=== PATIENT | female | born 1955 | race Caucasian/White ===

== ENCOUNTER → 2017-08-30 15:43 | Outpatient (CLI) | payer OTHER, SELFPAY ==
[2017-08-30 16:36] LABS: Add Manual Diff / Slide Review NO; Basophils Percent Auto 0.4 % (0-2); Eosinophils Percent Auto 1.3 % (2-4); Hematocrit 45.5 % (36-46); Hemoglobin 15.4 g/dL (12.0-16.0); Lymphocytes Percent Auto 22.8 % (25-40); Mean Corpuscular HGB Conc 33.9 % (30-36); Mean Corpuscular Hemoglobin 32.2 PG (26-34); Mean Corpuscular Volume 94.8 fL (80-100); Monocytes Percent Auto 6.3 % (3-14); Neutrophils Absolute Auto 8200 /uL (3000-5900); Neutrophils Percent Auto 69.2 % (50-75); Platelet Count 254 X10^3/uL (150-400); Red Cell Distribution Width 13.4 % (11.6-14.8); White Blood Cell Count 11.9 X10^3/uL (4.5-11.0)
[2017-08-30 16:49] LABS: Carbon Dioxide 29 mmol/L (22-32); Chloride 99 mmol/L (98-107); HEMOLYSIS < 15 (0-50); Sodium 141 mmol/L (137-145)
== END ==
PROVIDERS: Family Provider Family Medicine; PCP Family Medicine; Visit Provider Orthopaedic Surgery
DX: M16.11 Unilateral primary osteoarthritis, right hip (principal); Z01.818 Encounter for other preprocedural examination; Z01.812 Encounter for preprocedural laboratory examination
CPT/HCPCS: 36415; 80051; 85025; 93005

== ENCOUNTER 2017-09-13 10:10 | Inpatient (IN) | payer OTHER, SELFPAY ==
[2017-09-06 12:48] VITALS: BMI 29.8
[2017-09-13] VITALS (12 sets, daily range): BP systolic 125–157; BP diastolic 63–83; PULSE 50–64; RESP 10–18; TEMP 35.5–36.9; O2SAT 95–100; BMI 29.8
--- NOTE | 2017-09-13 | DI.RAD.S_ITS ---
PROCEDURE: XR PELVIS 1-2V INDICATIONS: TOTAL LEFT HIP TECHNIQUE: 1 view of the lower pelvis acquired. COMPARISON: [facility], CR, XR PELVIS WITH LATERAL HIP LEFT, 08/30/2017, 11:49. FINDINGS: Bones: Patient is status post left hip arthroplasty, with hardware components in expected positions. The hip joint appears congruent. The visualized bony structures appear intact. Soft tissues: Overlying postoperative changes are noted. No suspicious soft tissue densities. IMPRESSION: Left hip arthroplasty with prosthesis in anatomic alignment. Dictated by: Addy Reynoso M.D. on 09/13/2017 at 14:33 Approved by: Addy Reynoso M.D. on 09/13/2017 at 14:33
[2017-09-13] MEDS: LACTATED RINGERS 1,000 ML 42 ML IV ×2 (10:51→12:20)
--- NOTE | 2017-09-13 11:05 | PM.PREOP ---
Pre-operative Note Interval Note Pre-op Check: History & Physical Reviewed by Physician and Changes
--- NOTE | 2017-09-13 11:56 | SUR.OPER ---
Lateral on padded OR bed. Gel axillary roll. Arms secured on padded armboard with pillow supporting top arm. Padded hip positioner braces x4 - anterior and posterior chest and pelvis. Additional gel pad used anterior pelvis. Gel pad under bottom leg from knee to foot and secured with tape over sheet.
[2017-09-13] MEDS: BUPIVACAINE LIPOSOME 266 MG/20 ML VIAL INJ (12:01)
[2017-09-13] MEDS: BUPIVACAINE 0.25% W/ EPI 50 ML VIAL 30 ML INJ (12:01)
[2017-09-13] MEDS: CEFAZOLIN 1 GM VIAL IV (12:02)
[2017-09-13] MEDS: TRANEXAMIC ACID 1,000 MG VIAL 1000 MG INJ (12:03)
--- NOTE | 2017-09-13 12:51 | PM.OP.1 ---
Operative Date/Time/Diagnoses - Date of procedure: 09/13/17 Time of procedure: 12:52 Pre-op diagnosis: Left hip degenerative joint disease Post-op diagnosis: same Procedure & Clinicians Procedure: Left total hip arthroplasty (CPT code 72355 with server service assistant) Same procedure as scheduled: Yes Indications: Patient is an 61-year-old female with severe left hip DJD. The patient has pain with activities and at rest, limited ambulation and activity tolerance, difficulties with ADLs, and failure of conservative treatment. We have discussed the nature of condition, treatment options, risks and benefits, and patient elects to proceed with total hip arthroplasty and gives informed consent. Surgeon: Basilio Mcdonald Special Agent Secret Service: Chel Duron Anesthesia Type: Spinal Operative Notes Closure Type: primary Specimen(s): none sent Implants & Drains: Acetabulum: Pablo [employer]hew R3 acetabular component size 54 mm Femoral component: Pablo [employer]hew Synergy stem size 12 with standard offset Femoral head: 36 mm + 0 Oxinium Estimated Blood Loss (mL): 100 Blood products transfused: none Procedure in detail: After satisfaction induction of anesthetic, and administration of IV antibiotics, the patient was positioned in the lateral decubitus position with all bony prominences well padded and pelvic position secured using a hip agricultural plow operator positioning device. Left hip and lower extremity prepped and draped in the usual sterile fashion, 1st dose of intravenous tranexamic acid was administered, then a longitudinal incision was created centered over the greater trochanter and carried sharply through the skin and subcutaneous tissues down to the fascia gi which was divided longitudinally and retracted with a Charnley retractor. External rotators visualize, cut, tagged, and retracted posteriorly, then the capsule was cut in a T-type fashion with the corners tagged and retracted. Hip was dislocated and femoral neck cut made according to preoperative templating. Acetabular retractors then placed, and the acetabular labrum and osteophytes were excised. The acetabulum was then sequentially reamed to 53 mm with an excellent circumferential ream and fit with the trial. The trial component was removed and a permanent size 54 mm Pablo [employer] Nephew R3 acetabular component was selected, positioned, and impacted with satisfactory position and fixation achieved. Permanent liner was then inserted with the elevated lip directed posteriorly. Soft tissue then removed off the lateral femoral neck in the lateral neck was entered using a box osteotome. T-handled reamers placed down the canal followed by sequential broaching to 12 with the final broach left in place for trial reduction which demonstrated excellent leg length, range of motion, and stability characteristics with a 36 mm +0 trial ball. The trial and broach were removed, and a permanent size 12 Pablo and Nephew Synergy stem was selected and inserted with excellent position and fixation achieved. Another trial reduction yielded the above characteristics so the trial ball was exchanged for a permanent 36 mm +0 Oxinium ball. The hip was irrigated and reduced and excellent leg length range of motion and stability characteristics were achieved and maintained. Periarticular tissues were infiltrated with Exparel. The hip was copiously irrigated, and the capsule repaired with #2 Ethibond, and the piriformis was repaired back to the greater trochanter with the same. Fascia gi closed with interrupted #1 Ethibond sutures, and the subcutaneous tissues were closed in 2 layers of 0 Vicryl and 2 0 Vicryl. Skin was closed with brigitte and sterile dressings applied. Second dose of tranexamic acid was administered intravenously, and the anesthetic was terminated. Complications: none Condition: stable Disposition: PACU Plan for aftercare: Patient will be admitted to the acute care paulino, and anticipate discharge on postop day 1 or 2 with follow-up in office in 10-14 days. Outpatient physical therapy will be arranged and patient will continue to observe posterior hip precautions. Patient will continue use of postoperative Lovenox for 10 days postop.
--- NOTE | 2017-09-13 12:56 | P.OP_ITS ---
Operative Date/Time/Diagnoses - Date of procedure: 09/13/17 Time of procedure: 12:52 Pre-op diagnosis: Left hip degenerative joint disease Post-op diagnosis: same Procedure & Clinicians Procedure: Left total hip arthroplasty (CPT code 21197 with assistant plant manager) Same procedure as scheduled: Yes Indications: Patient is an 61-year-old female with severe left hip DJD. The patient has pain with activities and at rest, limited ambulation and activity tolerance, difficulties with ADLs, and failure of conservative treatment. We have discussed the nature of condition, treatment options, risks and benefits, and patient elects to proceed with total hip arthroplasty and gives informed consent. Surgeon: Basilio Mcdonald Supervisor Filter Assembly: Chel Duron Anesthesia Type: Spinal Operative Notes Closure Type: primary Specimen(s): none sent Implants & Drains: Acetabulum: Pablo [employer]hew R3 acetabular component size 54 mm Femoral component: Pablo [employer]hew Synergy stem size 12 with standard offset Femoral head: 36 mm + 0 Oxinium Estimated Blood Loss (mL): 100 Blood products transfused: none Procedure in detail: After satisfaction induction of anesthetic, and administration of IV antibiotics, the patient was positioned in the lateral decubitus position with all bony prominences well padded and pelvic position secured using a hip weekend anchor positioning device. Left hip and lower extremity prepped and draped in the usual sterile fashion, 1st dose of intravenous tranexamic acid was administered, then a longitudinal incision was created centered over the greater trochanter and carried sharply through the skin and subcutaneous tissues down to the fascia gi which was divided longitudinally and retracted with a Charnley retractor. External rotators visualize, cut, tagged, and retracted posteriorly, then the capsule was cut in a T-type fashion with the corners tagged and retracted. Hip was dislocated and femoral neck cut made according to preoperative templating. Acetabular retractors then placed, and the acetabular labrum and osteophytes were excised. The acetabulum was then sequentially reamed to 53 mm with an excellent circumferential ream and fit with the trial. The trial component was removed and a permanent size 54 mm Pablo and Nephew R3 acetabular component was selected, positioned, and impacted with satisfactory position and fixation achieved. Permanent liner was then inserted with the elevated lip directed posteriorly. Soft tissue then removed off the lateral femoral neck in the lateral neck was entered using a box osteotome. T-handled reamers placed down the canal followed by sequential broaching to 12 with the final broach left in place for trial reduction which demonstrated excellent leg length, range of motion, and stability characteristics with a 36 mm +0 trial ball. The trial and broach were removed, and a permanent size 12 Pablo and Nephew Synergy stem was selected and inserted with excellent position and fixation achieved. Another trial reduction yielded the above characteristics so the trial ball was exchanged for a permanent 36 mm +0 Oxinium ball. The hip was irrigated and reduced and excellent leg length range of motion and stability characteristics were achieved and maintained. Periarticular tissues were infiltrated with Exparel. The hip was copiously irrigated, and the capsule repaired with #2 Ethibond, and the piriformis was repaired back to the greater trochanter with the same. Fascia gi closed with interrupted #1 Ethibond sutures, and the subcutaneous tissues were closed in 2 layers of 0 Vicryl and 2 0 Vicryl. Skin was closed with brigitte and sterile dressings applied. Second dose of tranexamic acid was administered intravenously , and the anesthetic was terminated. Complications: none Condition: stable Disposition: PACU Plan for aftercare: Patient will be admitted to the acute care paulino, and anticipate discharge on postop day 1 or 2 with follow-up in office in 10-14 days. Outpatient physical therapy will be arranged and patient will continue to observe posterior hip precautions. Patient will continue use of postoperative Lovenox for 10 days postop.
--- NOTE | 2017-09-13 13:23 | SUR.PHASEI ---
STABLE PACU XRAY READ BY NICHOLAS OLIVER, NO PAIN REPORT CALLED TO SHANI, PT BROUGHT UP TO ROOM 218, AND LEDT IN STABLE CONDITION.
--- NOTE | 2017-09-13 15:27 | PC.NURSE ---
Assess- Pt to floor around 1300. She is a&ox3 and denies pain. She had a block to l.hip and has feeling just above pelvis. No newton present and her last void was around 1100am. LR at 100cc/hr infusing. Dressing to l.hip is cdi. Pt is visiting with her now.
[2017-09-13] MEDS: diphenhydrAMINE 50 MG/ML VIAL 25 MG IV ×2 (16:01→20:47)
[2017-09-13] MEDS: LACTATED RINGERS 1,000 ML 100 ML IV (16:01)
[2017-09-13] MEDS: SIMVASTATIN 10 MG TABLET PO (17:41)
[2017-09-13] MEDS: ONDANSETRON 4 MG/2 ML INJ IV ×2 (17:51→20:48)
[2017-09-13] MEDS: DOCUSATE 100 MG CAPSULE PO (20:47)
[2017-09-14] VITALS (8 sets, daily range): BP systolic 108–162; BP diastolic 53–90; PULSE 55–72; RESP 16–18; TEMP 36.8–37.2; O2SAT 18–100
[2017-09-14] MEDS: OXYCODONE/ACETAMINOPHEN 5/325 TABLET 1 TAB PO ×5 (00:38→15:55)
[2017-09-14] MEDS: diphenhydrAMINE 50 MG/ML VIAL 25 MG IV (00:41)
[2017-09-14] MEDS: LACTATED RINGERS 1,000 ML 100 ML IV (00:54)
[2017-09-14] MEDS: hydrOXYzine pamoate 25 MG CAPSULE PO ×6 (00:58→23:33)
[2017-09-14] MEDS: ONDANSETRON 4 MG/2 ML INJ IV (05:54)
[2017-09-14 06:17] LABS: Hematocrit 36.5 % (36-46); Hemoglobin 12.3 g/dL (12.0-16.0)
--- NOTE | 2017-09-14 07:46 | PM.PNPO.1 ---
Subjective Date Patient Seen: 09/14/17 Time Patient Seen: 07:46 Interval history: Pt is s/p RT SAL by Dr. Mcdonald. PD 1. Pain controlled with Percocet. Has been up few times to bedside commode. Rt leg from knee to ankle still numb due to spinal block. Does have feeling in rt anterior thigh and foot. Lives on [facility]. Plan is to d/c home tomorrrow. [facility] pt and has d/c meds already except Lovenox. Exam Vital Signs (past 8 hours): - 09/14/17 00:26 09/14/17 01:30 09/14/17 05:39 Temperature 98.2 F 98.2 F 98.2 F Pulse Rate 60 60 60 Respiratory Rate 18 18 Blood Pressure 128/71 H 128/71 H 117/55 L Pulse Oximetry 98 98 98 Oxygen Delivery Method Room Air Narrative Exam Narrative: Pt in bed. Appears comfortable. A&O x3. present in room. Right hip dressing CDI. Mod swelling in rt thigh. Bill calves soft and nontender. Sensation in rt leg intact except from knee to ankle. 4/5 rt ankle strength. Objective Labs Result Diagrams: 09/14/17 05:35 Labs: Laboratory Results - last 24 hr 09/14/17 05:35 Hgb 12.3 Hct 36.5 Assessment & Plan Post-op Postoperative Procedures Operation Date: 09/13/17 11:45 Actual Procedures Side Surgeon p Total Hip Arthroplasty Left Basilio Mcdonald MD PD 1 RT SAL. Spinal block not fully worn off yet in rt leg. Ambulate with PT today. DVT prophylaxis with SCDs and Lovenox. Plan for D/C home tomorrow. Lovenox rx in pt's chart. Time Spent With Patient less than 15 minutes Quality VTE Deep Vein Thrombosis/Pulmonary Embolism Present on Admission: No
[2017-09-14] MEDS: ENOXAPARIN 40 MG/0.4 ML SYRINGE SUBCUT (09:17)
[2017-09-14] MEDS: CALCIUM CARBONATE 600 MG TABLET PO (09:18)
[2017-09-14] MEDS: DOCUSATE 100 MG CAPSULE PO ×2 (09:18→20:30)
[2017-09-14] MEDS: MAGNESIUM OXIDE 400 MG TABLET 200 MG PO (09:19)
--- NOTE | 2017-09-14 10:00 | PT.IIE ---
Addendum entered by Becky Delgado R.N. 09/15/17 03:03: Original Note: Current Diagnoses Unilateral primary osteoarthritis, right hip (09/13/17) Surgery Performed Operation Date: 09/13/17 11:45 Actual Procedures p Total Hip Arthroplasty(Left) - Basilio Mcdonald MD Surgical History (Last Updated 09/06/17 @ 13:02 by Tara Lilly, RN) H/O vaginal hysterectomy (Acute) H/O: (Acute) S/P bunionectomy (Acute) Medical History (Last Updated 09/06/17 @ 15:53 by Tara Lilly RN) Arthritis (Acute) Basal cell carcinoma (Acute) Distal radius fracture, left (Acute) Gingivitis (Acute) Grade II diastolic dysfunction (Acute) High cholesterol (Acute) History of Moh's micrographic surgery for skin cancer (Acute) Hyperlipidemia (Acute) Impaired vision (Acute) PVCs (premature ventricular contractions) (Acute) Primary osteoarthritis of both hips (Acute) Sensation of plugged ear on right side (Acute) Sinus bradycardia (Acute) Trigger thumb (Acute) Physical Therapy Inpatient Evaluation/Re-Eval M1 PT/OT-IP Prior Functional Status Start: 09/14/17 13:05 Freq: NEEDED Status: Active Protocol: Document 09/14/17 10:00 AB (Rec: 09/14/17 13:19 AB [id number]) Medical Review Prior Functional Status Medical History Reviewed Yes Mobility and Gait pt stated that she is independent with all mobilities and ambulation without AD Social History Household Members significant other Number of Floors (Floors) One Floor Number of Stairs To Enter/Railing? 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[employer] M2 PT-IP Current Condition Start: 09/14/17 13:05 Freq: NEEDED Status: Active Protocol: Document 09/14/17 10:00 AB (Rec: 09/14/17 13:19 AB [id number]) Physical Therapy Current Condition Current Condition Evaluation Date 09/14/17 Treatment Diagnosis s/p L SAL Onset Date 09/13/17 Precautions Posterior Hip Precautions No Hip Flexion > 90 degrees No Hip Internal Rotation No Hip Adduction Weight Bearing Status Weight Bearing Status Weight Bear as Tolerated M3 PT-IP Subjective Start: 09/14/17 13:05 Freq: NEEDED Status: Active Protocol: Document 09/14/17 10:00 AB (Rec: 09/14/17 13:19 AB [id number]) Subjective Physical Therapy Visit Type Type Initial Evaluation Visit Start Time 10:00 Visit Stop Time 10:55 Total Visit Minutes 55 Number of OFFSHORE WIND OPERATIONS MANAGER Visits 0 Physical Therapy Visit Comments Patient Comments i am still numb on my LLE Therapy Pain Assessment Pain When Pain Assessed At Rest Pain Present Pain Present Denied Pain M4 PT-IP Mobility and Gait Start: 09/14/17 13:05 Freq: NEEDED Status: Active Protocol: Document 09/14/17 10:00 AB (Rec: 09/14/17 13:19 AB [id number]) PT-Bed Mobility Assessment Supine to Sit Supine to Sit Moderate Assistance PT-Transfer Assessment Sit to and From Stand Sit to and from Stand Maximum Assistance Equipment Transfer Assistive Device Gait Belt Front Wheeled Walker Transfers Transfer Destination Chair Transfer Technique Stand Step Pivot Transfer Ability Level of Assist Maximum Assistance 1 Person Assistance Use of Upper Extremities Comments Mobility Comments pt with (+) L knee buckling during standing with cues to activate quads muscles. pt also tends to internally rotate LLE requiring assist to stabilize LLE in neutral position Gait Assessment Gait Gait Assistance Required: Maximum Assistance Distance (Feet) (feet) 8 Able to Maintain Weight Bearing Status Yes During Gait Assistive Devices Assistive Device Gait Belt Front Wheeled Walker Orthotic/Prosthetic Devices or Brace: No Gait Deviations General Gait Pattern Antalgic Decreased Stride Length Decreased Feet Clearance Factors Limiting Gait Function Factors Limiting Gait Function Decreased Activity Tolerance Decreased Strength Limited Range of Motion Poor Balance Poor Safety Awareness Comments Gait Comments pt ambulated to the bedside commode using FWW max A and max cues. required max A to maintain standing balance using FWW for support while assisted with hygiene care. PT-Balance Assessment Sitting Balance and Reactions Static Sitting Balance Ability Good Dynamic Sitting Balance Ability Good Standing Balance and Reactions Static Standing Balance Ability Poor Dynamic Standing Balance Ability Poor Device Used FWW M5 PT-IP Objective Assessments Start: 09/14/17 13:05 Freq: NEEDED Status: Active Protocol: Document 09/14/17 10:00 AB (Rec: 09/14/17 13:19 AB [id number]) Orientation Orientation/Cognition Level of Alertness Alert Orientation Name Safety Awareness Decreased Safety Awareness Strength Lower Extremity Strength Assessment Left Impaired Hip 3-/5 Knee 3-/5 Ankle 3/5 Sensation Assessment Sensation Sensation Description Numbness Comments Sensation Comments c/o LLE numbness M6 PT-IP Treatment Start: 09/14/17 13:05 Freq: NEEDED Status: Active Protocol: Document 09/14/17 10:00 AB (Rec: 09/14/17 13:19 AB [id number]) Physical Therapy Treatment Education Education Provided Precautions Weight Bearing Status Post-Op Packet Safety M7 PT-IP Assessment and Plan Start: 09/14/17 13:05 Freq: NEEDED Status: Active Protocol: Document 09/14/17 10:00 AB (Rec: 09/14/17 13:19 AB [id number]) PT Summary Assessment and Plan Potential Rehabilitation Potential Fair Status of Condition at Evaluation Evolving Summary Impairments Pain ROM Strength Balance Coordination Sensation Tone Cognition Bed Mobility Transfers Gait Activity Tolerance Assessment Summary pt requiring max A with transfers and ambulation with (+) L knee buckling. d/c plan depending if spouse will be able to assist pt safely. will conduct caregiver training and stair training when appropriate. if pt progresses functionally, and spouse will be able to assist pt, pt may go home but at this time may require SNF rehab. Goals Bed Mobility Goal Contact Guard Assistance Transfer Goal Contact Guard Assistance Front Wheeled Walker Gait Goal Contact Guard Assistance Front Wheel Walker Gait Distance 100 Other Goals up/down 1 step using FWW CGA Days to Meet Goals 3 Frequency of Treatment Frequency Of Treatment Twice a Day Treatment Plan Physical Therapy Treatment Plan Bed Mobility Training Transfer Training Gait Training Therapeutic Exercise Balance Retraining Post Op Education Discharge Planning Hot or Cold Pack Neuromuscular Re-ed Coordination Retraining Manual Therapy Other Recommendations and Next Treatment ambulation, transfers, LE Focus exercises Recommendations To Nursing Amount of Assist Needed 2 Person Assist Discharge Recommendations PT Discharge Recommendations SNF Rehab Other Discharge Recommendations SNF vs home with assist, homehealth or outpt PT depending on progress
--- NOTE | 2017-09-14 10:32 | PC.NURSE ---
Addendum entered by Tessy Manzano R.N. 09/14/17 14:03: PAIN/NEURO - continues with numbness along anterior portion lle from ankle to knee, able to move toes, ankle wave, this afternoon does have some sensation posterior knee area, pain 5 on scale 0/10, discussed pain medications and prefers to remain with the percocet 5/325mg x 1 tab and 25mg vistaril. Original Note: AM NOTE - alert, states pain l knee 4-5 on scale 0/10, would like to continue same pain medication regiment, continues with numbness from her l ankle to below l knee, states slept well last night, earlier mild itching is resolving, no rash noted, stalin gen diet this am, no nausea, passing flatus, hr 60, bp 108/53 and will hold bp meds for now, assisted oob slowly x 1 person w/fww and took few small steps to bed, voided, ret to bed and given percocet po x1 tab for am phys therapy.
--- NOTE | 2017-09-14 14:17 | CM.DANOTE ---
Discharge Planning/Care Management CM Discharge Assessment Start: 09/14/17 14:15 Freq: Status: Active Protocol: Document 09/14/17 14:15 (Rec: 09/14/17 14:16 [id number]) Discharge Planning Assessment History Provided By Patient Medical Record Has Patient been admitted in last 30 No days? Is this patient on Medicare? Yes Prior Living Arrangements House Household Members significant other Independent with ADL's Yes Is patient alert and oriented? Yes Patient Discharge Plan Description OP PT Therapy Referrals Initiated None needed Comment Patient's life partner/Merill will be home with patient for one month. Discharge Plan Home Transportation Arrangement LP/Merill will sweet pickle maker patient . Patient will require priority boarding pass. Review Status In Process Next Review Type Continued Stay Review
--- NOTE | 2017-09-14 16:10 | PT.IPTN ---
Current Diagnoses Unilateral primary osteoarthritis, right hip (09/13/17) Surgery Performed Operation Date: 09/13/17 11:45 Actual Procedures p Total Hip Arthroplasty(Left) - Basilio Mcdonald MD Physical Therapy Treatment Note M2 PT-IP Current Condition Start: 09/14/17 13:05 Freq: NEEDED Status: Active Protocol: Document 09/14/17 10:00 AB (Rec: 09/14/17 13:19 AB [id number]) Physical Therapy Current Condition Current Condition Evaluation Date 09/14/17 Treatment Diagnosis s/p L SAL Onset Date 09/13/17 Precautions Posterior Hip Precautions No Hip Flexion > 90 degrees No Hip Internal Rotation No Hip Adduction Weight Bearing Status Weight Bearing Status Weight Bear as Tolerated M3 PT-IP Subjective Start: 09/14/17 13:05 Freq: NEEDED Status: Active Protocol: Document 09/14/17 16:40 AB (Rec: 09/14/17 17:21 AB [id number]) Subjective Physical Therapy Visit Type Type Treatment Note Visit Start Time 14:40 Visit Stop Time 15:08 Total Visit Minutes 28 Number of FACE MAN Visits 0 Physical Therapy Visit Comments Patient Comments pt agreeable to do therapy; continues to c/o LLE numbness Therapy Pain Assessment Pain When Pain Assessed At Rest Pain Present Pain Present Pain Reported Location left hip Intensity 8 Scale Used Numeric (1 - 10) Pain Management Techniques Apply Cold Timing of Activity with Medications M4 PT-IP Mobility and Gait Start: 09/14/17 13:05 Freq: NEEDED Status: Active Protocol: Document 09/14/17 16:40 AB (Rec: 09/14/17 17:21 AB [id number]) PT-Transfer Assessment Sit to and From Stand Sit to and from Stand Maximum Assistance Equipment Transfer Assistive Device Gait Belt Front Wheeled Walker Orthotic/Prosthetic Devices or Brace: No Gait Assessment Gait Gait Assistance Required: Maximum Assistance Distance (Feet) (feet) 8 Able to Maintain Weight Bearing Status Yes During Gait Assistive Devices Assistive Device Gait Belt Front Wheeled Walker Orthotic/Prosthetic Devices or Brace: No Gait Deviations General Gait Pattern Antalgic Decreased Stride Length Decreased Feet Clearance Step-to Gait Factors Limiting Gait Function Factors Limiting Gait Function Decreased Activity Tolerance Decreased Sensation Decreased Strength Limited Range of Motion Pain Poor Balance Poor Safety Awareness Comments Gait Comments pt continues to have difficulty with elevating LLE forward during ambulation and tends to drag it forward needing max A and max cues to assist. Pt also has increase LLE internal rotation and needs to be stabilized to neutral when doing sit <>stand . M5 PT-IP Objective Assessments Start: 09/14/17 13:05 Freq: NEEDED Status: Active Protocol: Document 09/14/17 10:00 AB (Rec: 09/14/17 13:19 AB [id number]) Orientation Orientation/Cognition Level of Alertness Alert Orientation Name Safety Awareness Decreased Safety Awareness Strength Lower Extremity Strength Assessment Left Impaired Hip 3-/5 Knee 3-/5 Ankle 3/5 Sensation Assessment Sensation Sensation Description Numbness Comments Sensation Comments c/o LLE numbness M6 PT-IP Treatment Start: 09/14/17 13:05 Freq: NEEDED Status: Active Protocol: Document 09/14/17 16:40 AB (Rec: 09/14/17 17:21 AB [id number]) Physical Therapy Treatment Education Education Provided Precautions Weight Bearing Status Post-Op Packet Safety M7 PT-IP Assessment and Plan Start: 09/14/17 13:05 Freq: NEEDED Status: Active Protocol: Document 09/14/17 16:40 AB (Rec: 09/14/17 17:21 AB [id number]) PT Summary Assessment and Plan Potential Rehabilitation Potential Fair Summary Impairments Pain ROM Strength Balance Coordination Sensation Tone Cognition Bed Mobility Transfers Gait Activity Tolerance Progress Towards Goals Slow Progress due to Pain Slow Progress due to Medical Issues Slow Progress due to Activity Tolerance Assessment Summary pt continues to require max A with mobility and c/o numbness on LLE. informed pt regarding SNF rehab at this time but pt hoping that she will progress enough to be able to do home. will continue to assess. Goals Bed Mobility Goal Contact Guard Assistance Transfer Goal Contact Guard Assistance Front Wheeled Walker Gait Goal Contact Guard Assistance Front Wheel Walker Gait Distance 100 Other Goals up/down 1 step using FWW CGA Days to Meet Goals 3 Frequency of Treatment Frequency Of Treatment Twice a Day Treatment Plan Physical Therapy Treatment Plan Bed Mobility Training Transfer Training Gait Training Therapeutic Exercise Balance Retraining Post Op Education Discharge Planning Hot or Cold Pack Neuromuscular Re-ed Coordination Retraining Manual Therapy Recommendations To Nursing Amount of Assist Needed 2 Person Assist Discharge Recommendations PT Discharge Recommendations SNF Rehab Other Discharge Recommendations SNF vs home with assist, homehealth or outpt PT depending on progress
[2017-09-14] MEDS: DOXYCYCLINE HYCLATE 100 MG TABLET 50 MG PO (16:48)
[2017-09-14] MEDS: SIMVASTATIN 10 MG TABLET PO (16:48)
[2017-09-14] MEDS: OXYCODONE/ACETAMINOPHEN 5/325 TABLET 2 TAB PO ×2 (20:30→23:33)
[2017-09-14] MEDS: HYDROMORPHONE 0.5 MG INJ IV (20:50)
[2017-09-15 00:31] VITALS: BP 136/63; PULSE 65; RESP 18; TEMP 37.4; O2SAT 96
--- NOTE | 2017-09-15 02:58 | PC.NURSE ---
Addendum entered by Becky Delgado R.N. 09/15/17 04:49: Pain breakthrough at 0330, fearful that she will have same severity as experienced earlier on evening shift, medicated with 2 percocet and 25 mg vistaril, up to bedside commode and able to consume soft diet/fluids. CMS unchanged. Original Note: Addendum entered by Becky Delgado R.N. 09/15/17 03:03: SCDs reapplied at 2330. Original Note: Shift summary [id number] - Adri was awake at change of shift, complaining of pain that was easily exacerbated w/ any movement making her fearful and cautious about moving left leg. She was also concerned about the warm of her left leg, increasing size, and numbness along anterior aspect of her mccallum. DP and PT pulses easily palpated, + movement of ankle, able to dorsiflex without pain on her calf muscle. SCDs were not on at 2300. She was medicated w 2 percocet and 25 mg vistaril , ambulated to bedside commode and returned to bed w/ ice to surgical anterior left trochanter. Pain was under better control within 30 minutes.
[2017-09-15] MEDS: OXYCODONE/ACETAMINOPHEN 5/325 TABLET 2 TAB PO ×2 (03:33→08:15)
[2017-09-15] MEDS: hydrOXYzine pamoate 25 MG CAPSULE PO ×3 (03:33→14:47)
[2017-09-15 06:09] VITALS: BP 117/67; PULSE 70; RESP 18; TEMP 36.7; O2SAT 95
[2017-09-15] MEDS: HYDROMORPHONE 0.5 MG INJ IV ×2 (07:00→21:20)
[2017-09-15 08:41] VITALS: BP 154/70; PULSE 75; RESP 16; TEMP 37.1; O2SAT 98
[2017-09-15] MEDS: DOCUSATE 100 MG CAPSULE PO ×2 (09:23→21:14)
[2017-09-15] MEDS: ATENOLOL 50 MG TABLET 100 MG PO (09:23)
[2017-09-15] MEDS: ENOXAPARIN 40 MG/0.4 ML SYRINGE SUBCUT (09:24)
[2017-09-15] MEDS: LOSARTAN 25 MG TABLET PO (09:24)
[2017-09-15] MEDS: hydroCHLOROthiazide 25 MG TABLET PO (09:24)
[2017-09-15] MEDS: CALCIUM CARBONATE 600 MG TABLET PO (09:24)
[2017-09-15] MEDS: MAGNESIUM OXIDE 400 MG TABLET 200 MG PO (10:06)
[2017-09-15] MEDS: MAGNESIUM HYDROXIDE 30 ML UDC PO (10:07)
--- NOTE | 2017-09-15 10:36 | PM.PNPO.1 ---
Subjective Date Patient Seen: 09/15/17 Time Patient Seen: 10:36 Interval history: Pt is s/p LT SAL by Dr. Mcdonald. PD 2. Patient having a lot more pain in hip than yesterday. Patient still having numbness from knee to ankle but can move ankle. Quad strength still weak. Exam Vital Signs (past 8 hours): - 09/15/17 06:09 09/15/17 08:41 Temperature 98.1 F 98.8 F Pulse Rate 70 75 Respiratory Rate 18 16 Blood Pressure 117/67 154/70 H Pulse Oximetry 95 98 Oxygen Delivery Method Room Air Narrative Exam Narrative: Pt in bed. A& O x3. Right hip dressing CDI. Numbness on anterior left from knee to ankle.Able to plantarflex and dorsiflex ankle. Full sensation in left foot. Nito calves soft and nontender. Objective Labs Result Diagrams: 09/14/17 05:35 Assessment & Plan Post-op Postoperative Procedures Operation Date: 09/13/17 11:45 Actual Procedures Side Surgeon p Total Hip Arthroplasty Left Basilio Mcdonald MD PD 2 s/p Lt SAL. Slow to mobilize due to numbness in leg and pain. Reviewed post op hip x-rays and see no obvious problems. OT ordered for patient. Pain medication changed from percocet to oxycodone 10mg q3h. Continue PT. Numbness from spinal anesthesia should resolve by tomorrow. Possible d/c home tomorrow. Will need a new rx for Lovenox on discharge. Time Spent With Patient less than 15 minutes Quality VTE Deep Vein Thrombosis/Pulmonary Embolism Present on Admission: No
[2017-09-15] MEDS: OXYCODONE IR 10 MG TABLET PO ×3 (11:38→22:46)
--- NOTE | 2017-09-15 11:39 | PT.IPTN ---
Current Diagnoses Unilateral primary osteoarthritis, right hip (09/13/17) Surgery Performed Operation Date: 09/13/17 11:45 Actual Procedures p Total Hip Arthroplasty(Left) - Basilio Mcdonald MD Physical Therapy Treatment Note M2 PT-IP Current Condition Start: 09/14/17 13:05 Freq: NEEDED Status: Active Protocol: Document 09/14/17 10:00 AB (Rec: 09/14/17 13:19 AB [id number]) Physical Therapy Current Condition Current Condition Evaluation Date 09/14/17 Treatment Diagnosis s/p L SAL Onset Date 09/13/17 Precautions Posterior Hip Precautions No Hip Flexion > 90 degrees No Hip Internal Rotation No Hip Adduction Weight Bearing Status Weight Bearing Status Weight Bear as Tolerated M3 PT-IP Subjective Start: 09/14/17 13:05 Freq: NEEDED Status: Active Protocol: Document 09/15/17 11:39 AB (Rec: 09/15/17 12:30 AB [id number]) Subjective Physical Therapy Visit Type Type Treatment Note Visit Start Time 11:39 Visit Stop Time 12:15 Total Visit Minutes 36 Number of SOLUTION SPECIALIST Visits 0 Physical Therapy Visit Comments Patient Comments pt agreeable to do therapy Therapy Pain Assessment Pain When Pain Assessed At Rest Pain Present Pain Present Pain Reported Location left hip Intensity 6 Scale Used Numeric (1 - 10) Pain Management Techniques Apply Cold Timing of Activity with Medications M4 PT-IP Mobility and Gait Start: 09/14/17 13:05 Freq: NEEDED Status: Active Protocol: Document 09/15/17 11:39 AB (Rec: 09/15/17 12:30 AB [id number]) PT-Bed Mobility Assessment Supine to Sit Supine to Sit Moderate Assistance Scooting Scooting to Edge of Bed Maximum Assistance PT-Transfer Assessment Sit to and From Stand Sit to and from Stand Maximum Assistance Equipment Transfer Assistive Device Gait Belt Front Wheeled Walker Orthotic/Prosthetic Devices or Brace: No Transfers Transfer Destination Bedside Commode Transfer Technique Stand Step Pivot Transfer Ability Level of Assist Maximum Assistance 1 Person Assistance Use of Upper Extremities Comments Mobility Comments pt required max cues for all tasks. continue to c/o LLE numbness but less than yesterday. pt continues to have increase LLE internal rotation with knee valgus. pt also requires assist to elevate and move LLE. pt seens drowsy today affecting following directions . M5 PT-IP Objective Assessments Start: 09/14/17 13:05 Freq: NEEDED Status: Active Protocol: Document 09/14/17 10:00 AB (Rec: 09/14/17 13:19 AB [id number]) Orientation Orientation/Cognition Level of Alertness Alert Orientation Name Safety Awareness Decreased Safety Awareness Strength Lower Extremity Strength Assessment Left Impaired Hip 3-/5 Knee 3-/5 Ankle 3/5 Sensation Assessment Sensation Sensation Description Numbness Comments Sensation Comments c/o LLE numbness M6 PT-IP Treatment Start: 09/14/17 13:05 Freq: NEEDED Status: Active Protocol: Document 09/15/17 11:39 AB (Rec: 09/15/17 12:30 AB [id number]) Physical Therapy Treatment Education Education Provided Precautions Weight Bearing Status Post-Op Packet Safety M7 PT-IP Assessment and Plan Start: 09/14/17 13:05 Freq: NEEDED Status: Active Protocol: Document 09/15/17 11:39 AB (Rec: 09/15/17 12:30 AB [id number]) PT Summary Assessment and Plan Potential Rehabilitation Potential Fair Summary Impairments Pain ROM Strength Balance Coordination Sensation Tone Cognition Bed Mobility Transfers Gait Activity Tolerance Progress Towards Goals Slow Progress due to Medical Issues Slow Progress due to Activity Tolerance Assessment Summary Pt continues to require max A and max cues with all tasks and unable to tolerate much activity. pt continues to c/o LLE numbness and with increase LLE internal rotation and knee valgus requiring stabilization with sit <>stand . pt will require SNF rehab. Goals Bed Mobility Goal Contact Guard Assistance Transfer Goal Contact Guard Assistance Front Wheeled Walker Gait Goal Contact Guard Assistance Front Wheel Walker Gait Distance 100 Other Goals up/down 1 step using FWW CGA Days to Meet Goals 3 Frequency of Treatment Frequency Of Treatment Twice a Day Treatment Plan Physical Therapy Treatment Plan Bed Mobility Training Transfer Training Gait Training Therapeutic Exercise Balance Retraining Post Op Education Discharge Planning Hot or Cold Pack Neuromuscular Re-ed Coordination Retraining Manual Therapy Recommendations To Nursing Amount of Assist Needed 2 Person Assist Discharge Recommendations PT Discharge Recommendations SNF Rehab
--- NOTE | 2017-09-15 11:43 | PC.NURSE ---
Addendum entered by Tessy Manzano R.N. 09/15/17 14:50: PAIN - after lunch states pain 3 on scale 0/10, would like same medications for afternoon PT and given 10mg oxycodone and 25mg vistaril. Sensation is gradually returning to her lle, leg feels soft, and anterior has more sensation to touch than noted this am. Original Note: AM NOTE - slept better last night, reporting increased pain l hip and was given iv dilaudid earlier, discussed pain medications, dosages and timing, currently 4/10 when not moving, 8 when oob earlier, spoke ANDI Milligan this am and changed to oxycodone 10mg q 3 rather than the percocet, continued with 25mg po vistaril this am and pt felt if timing was consistent the pain would be managed with that combination medications, continues with numbness along lle from ankle to below knee, improving sensation posterior knee and around anterior knee, same calf, leg is soft and info was discussed with PA, also discussed constipation and narcotics, given prune juice this am and stool softener and later new order rec'd for mom and given, pt is passing flatus, ra 95%, hr 70.
[2017-09-15 13:57] VITALS: BP 109/60; PULSE 75; RESP 16; TEMP 37.1; O2SAT 98
[2017-09-15 15:44] VITALS: BP 128/69; PULSE 63; RESP 16; TEMP 37.2; O2SAT 97
--- NOTE | 2017-09-15 17:03 | OT.IP.EVAL ---
Current Diagnoses Unilateral primary osteoarthritis, right hip (09/13/17) Surgery Performed Operation Date: 09/13/17 11:45 Actual Procedures p Total Hip Arthroplasty(Left) - Basilio Mcdonald MD Past Medical History (Last Updated 09/06/17 @ 15:53 by Tara Lilly, RN) Arthritis (Acute) Basal cell carcinoma (Acute) Distal radius fracture, left (Acute) Gingivitis (Acute) Grade II diastolic dysfunction (Acute) High cholesterol (Acute) History of Moh's micrographic surgery for skin cancer (Acute) Hyperlipidemia (Acute) Impaired vision (Acute) PVCs (premature ventricular contractions) (Acute) Primary osteoarthritis of both hips (Acute) Sensation of plugged ear on right side (Acute) Sinus bradycardia (Acute) Trigger thumb (Acute) Surgical History (Last Updated 09/06/17 @ 13:02 by Tara Lilly RN) H/O vaginal hysterectomy (Acute) H/O: (Acute) S/P bunionectomy (Acute) Occupational Therapy Inpatient Evaluation/Re-Eval M1 PT/OT-IP Prior Functional Status Start: 09/14/17 13:05 Freq: NEEDED Status: Active Protocol: Document 09/14/17 10:00 AB (Rec: 09/14/17 13:19 AB [id number]) Medical Review Prior Functional Status Medical History Reviewed Yes Mobility and Gait pt stated that she is independent with all mobilities and ambulation without AD Social History Household Members significant other Number of Floors (Floors) One Floor Number of Stairs To Enter/Railing? 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[employer] M1 PT/OT-IP Prior Functional Status Start: 09/15/17 16:30 Freq: NEEDED Status: Active Protocol: Document 09/15/17 16:38 [facility] (Rec: 09/15/17 17:02 [facility] [id number]) Medical Review Prior Functional Status Medical History Reviewed Yes Mobility and Gait pt stated that she is independent with all mobilities and ambulation without AD Social History Household Members significant other Living Arrangements House Number of Floors (Floors) One Floor Number of Stairs To Enter/Railing? 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[employer] M2 OT-IP Current Condition Start: 09/15/17 16:30 Freq: Status: Active Protocol: Document 09/15/17 16:38 [facility] (Rec: 09/15/17 17:02 [facility] [id number]) Occupational Therapy Current Condition Current Condition Evaluation Date 09/15/17 Treatment Diagnosis Left Hip osteoarthritis Post Operative Precautions Posterior Hip Precautions No Hip Flexion > 90 degrees No Hip Internal Rotation No Hip Adduction Weight Bearing Status Weight Bearing Status Weight Bear as Tolerated M3 OT- IP Subjective and Pain Start: 09/15/17 16:30 Freq: Status: Active Protocol: Document 09/15/17 16:38 [facility] (Rec: 09/15/17 17:02 [facility] [id number]) OT- Subjective Occupational Therapy Visit Type Type Initial Evaluation Visit Start Time 15:45 Visit Stop Time 16:15 Total Visit Minutes 30 Occupational Therapy Visit Comments Patient/Caregiver Goals Pt wanting to be able to go home, but realizing since not able to move left leg very well may need skilled rehab. OT Pain Assessment Pain When Pain Assessed During Mobility Pain Present Pain Present Pain Reported Location left hip Intensity 7 Scale Used Numeric (1 - 10) M4 OT- IP ADL's Start: 09/15/17 16:30 Freq: Status: Active Protocol: Document 09/15/17 16:38 [facility] (Rec: 09/15/17 17:02 [facility] [id number]) OT ADL-Dressing General Eval Lower Body Dressing Ability Maximum Assistance Areas Needing Assistance Socks Comments OT Dressing Comments Pt has all AED from RT. OT ADL-Toileting General Evaluation Toileting Ability Maximum Assistance Areas Needing Assistance Manage Clothing Devices Toileting Assistive Devices Commode Comments OT Toileting Comments Pt MAX A x1 to transfer, MAX A to stand while pt able to do own pericare needs. OT ADL-Bathing Comments OT Bathing Comments Not ready at this time. M6 OT- IP Functional Cognition Start: 09/15/17 16:30 Freq: Status: Active Protocol: Document 09/15/17 16:38 [facility] (Rec: 09/15/17 17:02 [facility] [id number]) Cognitive Factors Limiting Selfcare Function Cognitive Ability Level of Alertness Alert Drowsy Patient Orientation Name Place Situation Attention Span Ability Capable of Focused Attention Unable to Sustain Attention Ability to Follow Commands Able to Follow One Step Commands Memory Description Short Term Impaired Safety Awareness Underestimates Need for Assistance Problem Solving Ability Unable to Identify Errors Needs Assist to Identify Solutions Cognitive Comments Cognitive Assessment Comments Pt a bit drowsy, needing repetition for hand placement, sequencing to stand and sit from higher surfaces, and for safety awareness. OT- Vision and Hearing OT- Hearing Assessment OT- Hearing Assessment WFL M7 OT- IP Mobility and Balance Start: 09/15/17 16:30 Freq: Status: Active Protocol: Document 09/15/17 16:38 [facility] (Rec: 09/15/17 17:02 [facility] [id number]) OT- Bed Mobility Assessment Sit to Supine Sit to Supine Assist Maximum Assistance 1 Person Assistance 2 Person Assistance OT-Transfer Assessment Sit to and From Stand Sit to and from Stand Maximum Assistance Transfers Transfer Ability Maximum Assistance 1 Person Assistance Technique Transfer Destination Bed Toilet Transfer Technique Stand Step Pivot Devices Transfer Assistive Devices Gait Belt Front Wheeled Walker Comments Mobility Comments Pt needing MAX A to stand and very unsteady on her feet. Pt not able to pickling solution maker her left foot to take a step and tend to shift her foot from heel to ball of foot. OT- Balance Assessment Sitting Balance and Reactions Static Sitting Balance Ability Normal Dynamic Sitting Balance Ability Good Standing Balance and Reactions Static Standing Balance Ability Fair Dynamic Standing Balance Ability Poor M8 OT- IP Objective Assessments Start: 09/15/17 16:30 Freq: Status: Active Protocol: Document 09/15/17 16:38 [facility] (Rec: 09/15/17 17:02 [facility] [id number]) OT Gross Range of Motion Upper Extremity Range of Motion Assessment Within Functional Limits OT-Muscle Tone Assessment Muscle Tone WNL Yes M9 OT- IP Assessment and Plan Start: 09/15/17 16:30 Freq: Status: Active Protocol: Document 09/15/17 16:38 [facility] (Rec: 09/15/17 17:02 [facility] [id number]) OT Summary Assessment and Plan Potential Rehabilitation Potential Good Analytic Complexity at Evaluation Low Summary OT Impairments Pain Strength Balance Functional Cognition Functional Mobility Grooming Dressing Toileting Bathing Toilet Transfers Shower Transfers Progress Towards Goals Slow Progress due to Pain Slow Progress due to Medical Issues Slow Progress due to Activity Tolerance Slow Progress due to Cognition Assessment Summary Pt MOD complexity due to now needing extensive assist 1-2 persons for all ADL and functional mobility needs. Pt has decreased strength, balance, safety awareness, activity tolerance, and decreased control to move LLE. Pt would benefit from skilled rehab pending great improvements and ability for family to assist pt safely for all needs. Goals Grooming Goal Standby Assistance Dressing Goal Standby Assistance Toileting Goal Minimal Assistance Bathing Goal Moderate Assistance Toilet Transfer Goal Minimal Assistance Shower Transfer Goal Minimal Assistance Patient/Caregiver Education Goal Caregiver Independent Assisting Patient Days to Meet Goals 5 Frequency of Treatment Frequency Of Treatment Once a Day Treatment Plan OT Treatment Plan ADL Training Functional Cognition Training Functional Mobility Patient/Family Education Discharge Planning Other Treatment Recommendations and Next caregiver training, AED for LB Treatment Focus dressing Discharge Recommendations OT Discharge Recommendations SNF Rehab Home Equipment Needs [facility]
--- NOTE | 2017-09-15 17:44 | PT.IPTN ---
Current Diagnoses Unilateral primary osteoarthritis, right hip (09/13/17) Surgery Performed Operation Date: 09/13/17 11:45 Actual Procedures p Total Hip Arthroplasty(Left) - Basilio Mcdonald MD Physical Therapy Treatment Note M2 PT-IP Current Condition Start: 09/14/17 13:05 Freq: NEEDED Status: Active Protocol: Document 09/14/17 10:00 AB (Rec: 09/14/17 13:19 AB [id number]) Physical Therapy Current Condition Current Condition Evaluation Date 09/14/17 Treatment Diagnosis s/p L SAL Onset Date 09/13/17 Precautions Posterior Hip Precautions No Hip Flexion > 90 degrees No Hip Internal Rotation No Hip Adduction Weight Bearing Status Weight Bearing Status Weight Bear as Tolerated M3 PT-IP Subjective Start: 09/14/17 13:05 Freq: NEEDED Status: Active Protocol: Document 09/15/17 17:34 AB (Rec: 09/15/17 17:43 AB [id number]) Subjective Physical Therapy Visit Type Type Treatment Note Visit Start Time 16:00 Visit Stop Time 16:24 Total Visit Minutes 24 Number of COCOA POWDER MIXER OPERATOR Visits 0 Physical Therapy Visit Comments Patient Comments pt agreeable to do therapy Therapy Pain Assessment Pain When Pain Assessed At Rest Pain Present Pain Present Pain Reported Location left hip Intensity 7 Scale Used Numeric (1 - 10) Pain Management Techniques Apply Cold Timing of Activity with Medications M4 PT-IP Mobility and Gait Start: 09/14/17 13:05 Freq: NEEDED Status: Active Protocol: Document 09/15/17 17:34 AB (Rec: 09/15/17 17:43 AB [id number]) PT-Bed Mobility Assessment Sit to Supine Sit to Supine Maximum Assistance 1 Person Assistance 2 Person Assistance PT-Transfer Assessment Sit to and From Stand Sit to and from Stand Maximum Assistance 1 Person Assistance Equipment Transfer Assistive Device Gait Belt Front Wheeled Walker Orthotic/Prosthetic Devices or Brace: No Transfers Transfer Destination Bed Transfer Technique Stand Step Pivot Transfer Ability Level of Assist Maximum Assistance 1 Person Assistance Comments Mobility Comments requires max cues with all tasks. pt continues to be drowsy. Gait Assessment Gait Gait Assistance Required: Maximum Assistance 1 Person Assist Distance (Feet) (feet) 8 Able to Maintain Weight Bearing Status Yes During Gait Assistive Devices Assistive Device Gait Belt Front Wheeled Walker Orthotic/Prosthetic Devices or Brace: No Gait Deviations General Gait Pattern Antalgic Decreased Stride Length Decreased Feet Clearance Factors Limiting Gait Function Factors Limiting Gait Function Decreased Activity Tolerance Decreased Sensation Decreased Strength Difficulty Following Directions Limited Range of Motion Pain Poor Balance Poor Safety Awareness Comments Gait Comments pt required max A to move LLE during transfers and ambulation M5 PT-IP Objective Assessments Start: 09/14/17 13:05 Freq: NEEDED Status: Active Protocol: Document 09/14/17 10:00 AB (Rec: 09/14/17 13:19 AB [id number]) Orientation Orientation/Cognition Level of Alertness Alert Orientation Name Safety Awareness Decreased Safety Awareness Strength Lower Extremity Strength Assessment Left Impaired Hip 3-/5 Knee 3-/5 Ankle 3/5 Sensation Assessment Sensation Sensation Description Numbness Comments Sensation Comments c/o LLE numbness M6 PT-IP Treatment Start: 09/14/17 13:05 Freq: NEEDED Status: Active Protocol: Document 09/15/17 11:39 AB (Rec: 09/15/17 12:30 AB [id number]) Physical Therapy Treatment Education Education Provided Precautions Weight Bearing Status Post-Op Packet Safety M7 PT-IP Assessment and Plan Start: 09/14/17 13:05 Freq: NEEDED Status: Active Protocol: Document 09/15/17 17:34 AB (Rec: 09/15/17 17:43 AB [id number]) PT Summary Assessment and Plan Potential Rehabilitation Potential Fair Summary Impairments Pain ROM Strength Balance Sensation Cognition Bed Mobility Transfers Gait Activity Tolerance Progress Towards Goals Slow Progress due to Medical Issues Slow Progress due to Activity Tolerance Assessment Summary pt continues to require max A x 1-2 with all mobilities. continues to c/o numbness LLE. pt will require SNF rehab to improve mobility and independence Goals Bed Mobility Goal Contact Guard Assistance Transfer Goal Contact Guard Assistance Front Wheeled Walker Gait Goal Contact Guard Assistance Front Wheel Walker Gait Distance 100 Other Goals up/down 1 step using FWW CGA Days to Meet Goals 3 Frequency of Treatment Frequency Of Treatment Twice a Day Treatment Plan Physical Therapy Treatment Plan Bed Mobility Training Transfer Training Gait Training Therapeutic Exercise Balance Retraining Post Op Education Discharge Planning Hot or Cold Pack Neuromuscular Re-ed Coordination Retraining Manual Therapy Recommendations To Nursing Amount of Assist Needed 2 Person Assist Discharge Recommendations PT Discharge Recommendations SNF Rehab
[2017-09-15] MEDS: SIMVASTATIN 10 MG TABLET PO (17:49)
[2017-09-15] MEDS: DOXYCYCLINE HYCLATE 100 MG TABLET 50 MG PO (17:49)
[2017-09-15] MEDS: OXYCODONE IR 5 MG TABLET PO (17:58)
[2017-09-15 20:05] VITALS: BP 129/67; PULSE 77; RESP 15; TEMP 37.6; O2SAT 94
[2017-09-16] VITALS (7 sets, daily range): BP systolic 111–147; BP diastolic 61–76; PULSE 62–93; RESP 14–18; TEMP 36.2–37.6; O2SAT 93–97
[2017-09-16] MEDS: ACETAMINOPHEN 325 MG TABLET 650 MG PO ×4 (01:16→19:46)
[2017-09-16] MEDS: OXYCODONE IR 10 MG TABLET PO (01:40)
--- NOTE | 2017-09-16 01:46 | PC.NURSE ---
Addendum entered by Becky Delgado R.N. 09/16/17 06:42: Painful again at 0500, given oxycodone 5 mg and ambulated to bathroom with 2 person assist at 0545. She was much more aware of proper body mechanics, able to put some weight on left leg and using walker took 10 minutes to transition out of bed to bathroom. Dressing changed to left trochanter; incision line approximated and covered with vaseline gauze. Occlusive dressing applied. She was placed in chair; tylenol 650 mg given at 0700. Original Note: Shift summary [id number] Nidia was awake at 0045, complaining about pain rated between 4-6/10, almost 1 hour early for pain medication, discussed options. She had a challenging time on evenings with transfer out of bed to commode, severe pain limited her ability to return to bed and caused more fear, decision was made by evening nursing team to abandon commode and use bed [place]. Nidia seems content with this decision because she is less stressed, and not forced into mobility. Temp elevated at 99, no SCDs on place. At 0110 she was given 650 mg tylenol and SCDs placed, and at 0145 10 mg Oxycodone was given. Plans are to improve mobility to increase healing, improve lung expansion and encourage her to resume ADL's. Both she and agreed. Her sensation is gradually returning to lower anterior mccallum area which is encouraging.
[2017-09-16] MEDS: OXYCODONE IR 5 MG TABLET PO ×5 (05:26→19:46)
--- NOTE | 2017-09-16 09:45 | PT.IPTN ---
Current Diagnoses Unilateral primary osteoarthritis, right hip (09/13/17) Surgery Performed Operation Date: 09/13/17 11:45 Actual Procedures p Total Hip Arthroplasty(Left) - Basilio Mcdonald MD Physical Therapy Treatment Note M2 PT-IP Current Condition Start: 09/14/17 13:05 Freq: NEEDED Status: Active Protocol: Document 09/14/17 10:00 AB (Rec: 09/14/17 13:19 AB [id number]) Physical Therapy Current Condition Current Condition Evaluation Date 09/14/17 Treatment Diagnosis s/p L SAL Onset Date 09/13/17 Precautions Posterior Hip Precautions No Hip Flexion > 90 degrees No Hip Internal Rotation No Hip Adduction Weight Bearing Status Weight Bearing Status Weight Bear as Tolerated M3 PT-IP Subjective Start: 09/14/17 13:05 Freq: NEEDED Status: Active Protocol: Document 09/16/17 09:45 AB (Rec: 09/16/17 12:35 AB [id number]) Subjective Physical Therapy Visit Type Type Treatment Note Visit Start Time 09:45 Visit Stop Time 10:09 Total Visit Minutes 24 Number of SENIOR GAME DESIGNER Visits 0 Therapy Pain Assessment Pain When Pain Assessed At Rest Pain Present Pain Present Pain Reported Location left hip Intensity 7 Scale Used Numeric (1 - 10) Pain Management Techniques Apply Cold Re-positioning M4 PT-IP Mobility and Gait Start: 09/14/17 13:05 Freq: NEEDED Status: Active Protocol: Document 09/16/17 09:45 AB (Rec: 09/16/17 12:35 AB [id number]) PT-Transfer Assessment Sit to and From Stand Sit to and from Stand Moderate Assistance Maximum Assistance 1 Person Assistance Use of Upper Extremities Equipment Transfer Assistive Device Bed Rail Front Wheeled Walker Transfers Transfer Destination Chair Transfer Technique pt ambulated from toilet to chair using FWW Comments Mobility Comments pt was coming out of the toilet with NAC. PT took over . pt ambulated back to chair using FWW mod to max A and max cues. continues to drag LLE forward and requires assist for weight shifting and elevating LLE forward. M5 PT-IP Objective Assessments Start: 09/14/17 13:05 Freq: NEEDED Status: Active Protocol: Document 09/14/17 10:00 AB (Rec: 09/14/17 13:19 AB [id number]) Orientation Orientation/Cognition Level of Alertness Alert Orientation Name Safety Awareness Decreased Safety Awareness Strength Lower Extremity Strength Assessment Left Impaired Hip 3-/5 Knee 3-/5 Ankle 3/5 Sensation Assessment Sensation Sensation Description Numbness Comments Sensation Comments c/o LLE numbness M6 PT-IP Treatment Start: 09/14/17 13:05 Freq: NEEDED Status: Active Protocol: Document 09/16/17 09:45 AB (Rec: 09/16/17 12:35 AB [id number]) Physical Therapy Treatment Exercises Exercises Ankle Pumps Quad Sets Other Treatments Other Treatment Performed pt also completed LAQs with 5 sec hold M7 PT-IP Assessment and Plan Start: 09/14/17 13:05 Freq: NEEDED Status: Active Protocol: Document 09/16/17 09:45 AB (Rec: 09/16/17 12:35 AB [id number]) PT Summary Assessment and Plan Potential Rehabilitation Potential Fair Summary Impairments Pain ROM Strength Balance Coordination Sensation Tone Cognition Bed Mobility Transfers Gait Activity Tolerance Progress Towards Goals Slow Progress due to Medical Issues Assessment Summary pt stated that numbness on LLE is less but still has some from anterior knee to mccallum area. Continues to have LLE weakness requiring assist to stabilize during standing and ambulation. Pt requires mod to max A with ambulation. pt will require SNF rehab. Goals Bed Mobility Goal Contact Guard Assistance Transfer Goal Contact Guard Assistance Front Wheeled Walker Gait Goal Contact Guard Assistance Front Wheel Walker Gait Distance 100 Other Goals up/down 1 step using FWW CGA Days to Meet Goals 3 Frequency of Treatment Frequency Of Treatment Twice a Day Treatment Plan Physical Therapy Treatment Plan Bed Mobility Training Transfer Training Gait Training Therapeutic Exercise Balance Retraining Post Op Education Discharge Planning Hot or Cold Pack Neuromuscular Re-ed Coordination Retraining Manual Therapy Recommendations To Nursing Amount of Assist Needed 2 Person Assist Discharge Recommendations PT Discharge Recommendations SNF Rehab
[2017-09-16] MEDS: ENOXAPARIN 40 MG/0.4 ML SYRINGE SUBCUT (10:13)
[2017-09-16] MEDS: CALCIUM CARBONATE 600 MG TABLET PO (10:13)
[2017-09-16] MEDS: DOCUSATE 100 MG CAPSULE PO (10:14)
[2017-09-16] MEDS: MAGNESIUM OXIDE 400 MG TABLET 200 MG PO (10:14)
--- NOTE | 2017-09-16 13:54 | CM.DPC ---
DCP Cont: Per Ortho PA, pt not medically stable yet today and her block took a long time to wear off and pt having significant pain and will need another day to work with PT/OT towards determining SNF vs HH. CORRINA met bedside with pt and friend and explained role and discussed d/c planning. Pt states that her preference would be home but she is not progressing like anticipated and is agreeable to back up plan of SNF if needed. Pt lives on [facility] and SW provided the SNF Choice List and identified the [place] contracted SNF's and pt's preference is [facility]. SW discussed the need for [place] auth and pt is aware and agreeable to SW beginning the process of SNF auth from [place] to determine if they would approve or deny SNF at d/c. SW faxed [place] pt's clinicals to review for SNF auth and called [facility] with new referral to review. Plan: SW to follow for [place] review towards SNF auth and [facility] review of pt as a back up plan if pt does not progress enough to d/c home. Bibi Mota, STRUCTURAL STEEL ERECTION SUPERVISOR
--- NOTE | 2017-09-16 14:30 | PT.IPTN ---
Current Diagnoses Unilateral primary osteoarthritis, right hip (09/13/17) Surgery Performed Operation Date: 09/13/17 11:45 Actual Procedures p Total Hip Arthroplasty(Left) - Basilio Mcdonald MD Physical Therapy Treatment Note M2 PT-IP Current Condition Start: 09/14/17 13:05 Freq: NEEDED Status: Active Protocol: Document 09/14/17 10:00 AB (Rec: 09/14/17 13:19 AB [id number]) Physical Therapy Current Condition Current Condition Evaluation Date 09/14/17 Treatment Diagnosis s/p L SAL Onset Date 09/13/17 Precautions Posterior Hip Precautions No Hip Flexion > 90 degrees No Hip Internal Rotation No Hip Adduction Weight Bearing Status Weight Bearing Status Weight Bear as Tolerated M3 PT-IP Subjective Start: 09/14/17 13:05 Freq: NEEDED Status: Active Protocol: Document 09/16/17 14:30 AB (Rec: 09/16/17 16:11 AB [id number]) Subjective Physical Therapy Visit Type Type Treatment Note Visit Start Time 14:30 Visit Stop Time 15:22 Total Visit Minutes 52 Number of COLLECTOR Visits 0 Physical Therapy Visit Comments Patient Comments pt requested to go home Therapy Pain Assessment Pain When Pain Assessed At Rest Pain Present Pain Present Pain Reported Location left hip Intensity 6 Scale Used Numeric (1 - 10) M4 PT-IP Mobility and Gait Start: 09/14/17 13:05 Freq: NEEDED Status: Active Protocol: Document 09/16/17 14:30 AB (Rec: 09/16/17 16:11 AB [id number]) PT-Bed Mobility Assessment Sit to Supine Sit to Supine Moderate Assistance PT-Transfer Assessment Sit to and From Stand Sit to and from Stand Moderate Assistance Equipment Transfer Assistive Device Gait Belt Front Wheeled Walker Transfers Transfer Destination Bed Toilet Transfer Technique pt ambulated to the toilet and back to bed Transfer Ability Level of Assist Maximum Assistance 1 Person Assistance Gait Assessment Gait Gait Assistance Required: Maximum Assistance Distance (Feet) (feet) 12 Able to Maintain Weight Bearing Status Yes During Gait Assistive Devices Assistive Device Gait Belt Orthotic/Prosthetic Devices or Brace: No Gait Deviations General Gait Pattern Antalgic Decreased Stride Length Decreased Feet Clearance Step-to Gait Factors Limiting Gait Function Factors Limiting Gait Function Decreased Activity Tolerance Decreased Strength Limited Range of Motion Pain Poor Balance Poor Safety Awareness Comments Gait Comments pt continues to have difficulty with LLE elevation and propulsion with (+) L knee buckling requiring max A and max cues. M5 PT-IP Objective Assessments Start: 09/14/17 13:05 Freq: NEEDED Status: Active Protocol: Document 09/14/17 10:00 AB (Rec: 09/14/17 13:19 AB [id number]) Orientation Orientation/Cognition Level of Alertness Alert Orientation Name Safety Awareness Decreased Safety Awareness Strength Lower Extremity Strength Assessment Left Impaired Hip 3-/5 Knee 3-/5 Ankle 3/5 Sensation Assessment Sensation Sensation Description Numbness Comments Sensation Comments c/o LLE numbness M6 PT-IP Treatment Start: 09/14/17 13:05 Freq: NEEDED Status: Active Protocol: Document 09/16/17 14:30 AB (Rec: 09/16/17 16:11 AB [id number]) Physical Therapy Treatment Exercises Exercises Ankle Pumps Quad Sets Heel Slides Education Education Provided Precautions Weight Bearing Status Post-Op Packet Safety M7 PT-IP Assessment and Plan Start: 09/14/17 13:05 Freq: NEEDED Status: Active Protocol: Document 09/16/17 14:30 AB (Rec: 09/16/17 16:11 AB [id number]) PT Summary Assessment and Plan Potential Rehabilitation Potential Fair Summary Impairments Pain ROM Strength Balance Coordination Sensation Tone Cognition Bed Mobility Transfers Gait Activity Tolerance Progress Towards Goals Slow Progress due to Pain Slow Progress due to Medical Issues Slow Progress due to Activity Tolerance Assessment Summary pt continues to require max A and max cues with mobility. pt will require SNF rehab to improve function and independence. Goals Bed Mobility Goal Contact Guard Assistance Transfer Goal Contact Guard Assistance Front Wheeled Walker Gait Goal Contact Guard Assistance Front Wheel Walker Gait Distance 100 Other Goals up/down 1 step using FWW CGA Days to Meet Goals 3 Frequency of Treatment Frequency Of Treatment Twice a Day Treatment Plan Physical Therapy Treatment Plan Bed Mobility Training Transfer Training Gait Training Therapeutic Exercise Balance Retraining Post Op Education Discharge Planning Hot or Cold Pack Neuromuscular Re-ed Coordination Retraining Manual Therapy Recommendations To Nursing Amount of Assist Needed 1 Person Assist 2 Person Assist Discharge Recommendations PT Discharge Recommendations SNF Rehab
[2017-09-16] MEDS: hydrOXYzine pamoate 25 MG CAPSULE PO ×2 (16:47→22:57)
--- NOTE | 2017-09-16 16:51 | PC.NURSE ---
Addendum entered by Eva Benavides R.N. 09/16/17 22:58: Med at this time w/ Vistaril and oxycodone for discomfort and itching. Original Note: Addendum entered by Eva Benavides R.N. 09/16/17 22:00: Pt resting at intervals through evening. Med w/ oxycodone and tylenol of rdiscomfort w/good relief Dsg CDI. HL intact. Stable post op course. Call light w/in reach. Continue w/plan of care. Original Note: Pt awake, states discomfort 10/27. Med w/ oxycodone and vistaril. HL Right hand intact/patent. Dsg to left hip CDI. Satisfactory post op course. Call light w/in reach.
--- NOTE | 2017-09-16 17:18 | OT.IP.TRT ---
Current Diagnoses Unilateral primary osteoarthritis, right hip (09/13/17) Surgery Performed Operation Date: 09/13/17 11:45 Actual Procedures p Total Hip Arthroplasty(Left) - Basilio Mcdonald MD Occupational Therapy Treatment Note M2 OT-IP Current Condition Start: 09/15/17 16:30 Freq: Status: Active Protocol: Document 09/15/17 16:38 [facility] (Rec: 09/15/17 17:02 [facility] [id number]) Occupational Therapy Current Condition Current Condition Evaluation Date 09/15/17 Treatment Diagnosis Left Hip osteoarthritis Post Operative Precautions Posterior Hip Precautions No Hip Flexion > 90 degrees No Hip Internal Rotation No Hip Adduction Weight Bearing Status Weight Bearing Status Weight Bear as Tolerated M3 OT- IP Subjective and Pain Start: 09/15/17 16:30 Freq: Status: Active Protocol: Document 09/16/17 17:18 [facility] (Rec: 09/16/17 17:18 [facility] [id number]) OT- Subjective Occupational Therapy Visit Type Type Patient Refusal Notes Pt tired and wanting to hold off on OT until tomorrow.
[2017-09-16] MEDS: DOXYCYCLINE HYCLATE 100 MG TABLET 50 MG PO (18:25)
[2017-09-16] MEDS: SIMVASTATIN 10 MG TABLET PO (18:25)
[2017-09-17] VITALS (10 sets, daily range): BP systolic 123–146; BP diastolic 56–79; PULSE 66–75; RESP 16–18; TEMP 36–37.4; O2SAT 95–97
[2017-09-17] MEDS: OXYCODONE IR 5 MG TABLET PO ×4 (00:55→21:46)
[2017-09-17] MEDS: ACETAMINOPHEN 325 MG TABLET 650 MG PO ×3 (02:43→18:40)
[2017-09-17] MEDS: hydrOXYzine pamoate 25 MG CAPSULE PO ×4 (02:44→21:46)
--- NOTE | 2017-09-17 05:24 | PC.NURSE ---
Addendum entered by Jennifer No R.N. 09/17/17 05:25: 0458- pt given 10 mg oxycodone- 2 tablets of 5 mg. spoke with pharmacist and put in meds and linked order. check MAR. Original Note: Assumed care of pt from outgoing shift at 2300 6-30. PT asleep in room, pt asleep, arouses to voice. discusses plan of care. given meds per MAR. Pt using bedpan per pt as she stats PT told her to use bedpan through the night. Pt belongings and call light within reach. Pt compliant with nursing assessments. will continue to monitor. bed alarm on. side rails up x3 for pt safety.
[2017-09-17] MEDS: MAGNESIUM OXIDE 400 MG TABLET 200 MG PO (08:04)
[2017-09-17] MEDS: DOCUSATE 100 MG CAPSULE PO ×2 (08:04→21:46)
[2017-09-17] MEDS: ENOXAPARIN 40 MG/0.4 ML SYRINGE SUBCUT (08:04)
[2017-09-17] MEDS: CALCIUM CARBONATE 600 MG TABLET PO (08:04)
[2017-09-17] MEDS: OXYCODONE IR 10 MG TABLET PO ×3 (08:04→15:34)
--- NOTE | 2017-09-17 09:21 | CM.DPC ---
Addendum entered by RASHMI Correa 09/17/17 14:42: [facility] able to accept patient pending [place] Auth. Original Note: Called from [place]: They are requested PT/OT notes. CORRINA faxed updated clinicals.
--- NOTE | 2017-09-17 09:30 | PT.IPTN ---
Current Diagnoses Unilateral primary osteoarthritis, right hip (09/13/17) Surgery Performed Operation Date: 09/13/17 11:45 Actual Procedures p Total Hip Arthroplasty(Left) - Basilio Mcdonald MD Physical Therapy Treatment Note M2 PT-IP Current Condition Start: 09/14/17 13:05 Freq: NEEDED Status: Active Protocol: Document 09/17/17 09:30 TMS (Rec: 09/17/17 10:20 TMS [email or web address]) Physical Therapy Current Condition Current Condition Evaluation Date 09/14/17 Treatment Diagnosis s/p L SAL Onset Date 09/13/17 Precautions Posterior Hip Precautions No Hip Flexion > 90 degrees No Hip Internal Rotation No Hip Adduction Weight Bearing Status Weight Bearing Status Weight Bear as Tolerated M3 PT-IP Subjective Start: 09/14/17 13:05 Freq: NEEDED Status: Active Protocol: Document 09/17/17 09:30 TMS (Rec: 09/17/17 10:20 TMS [email or web address]) Subjective Physical Therapy Visit Type Type Treatment Note Visit Start Time 09:00 Visit Stop Time 09:30 Total Visit Minutes 30 Number of RN HEMATOLOGY Visits 1 Physical Therapy Visit Comments Patient Comments Pt. sitting in chair, present. Pt. hoping to go home , states this surgery has been much harder then last SAL done 6 months ago. Therapy Pain Assessment Pain When Pain Assessed At Rest Pain Present Pain Present Pain Reported M4 PT-IP Mobility and Gait Start: 09/14/17 13:05 Freq: NEEDED Status: Active Protocol: Document 09/17/17 09:30 TMS (Rec: 09/17/17 10:20 TMS [email or web address]) PT-Transfer Assessment Sit to and From Stand Sit to and from Stand Minimal Assistance Equipment Transfer Assistive Device Gait Belt Front Wheeled Walker Comments Mobility Comments Pt. struggled with scooting forward in chair but able to do without assist. Gait Assessment Gait Gait Assistance Required: Minimum Assistance Distance (Feet) (feet) 20 Able to Maintain Weight Bearing Status Yes During Gait Assistive Devices Assistive Device Gait Belt Front Wheeled Walker Orthotic/Prosthetic Devices or Brace: No Gait Deviations General Gait Pattern Antalgic Decreased Stride Length Decreased Feet Clearance Step-to Gait Factors Limiting Gait Function Factors Limiting Gait Function Decreased Activity Tolerance Decreased Strength Limited Range of Motion Pain Poor Balance Poor Safety Awareness Comments Gait Comments Pt. feels like she's improving with gait but still having difficulty with LLE elevation, shuffles foot most of the time with gait. M5 PT-IP Objective Assessments Start: 09/14/17 13:05 Freq: NEEDED Status: Active Protocol: Document 09/14/17 10:00 AB (Rec: 09/14/17 13:19 AB [id number]) Orientation Orientation/Cognition Level of Alertness Alert Orientation Name Safety Awareness Decreased Safety Awareness Strength Lower Extremity Strength Assessment Left Impaired Hip 3-/5 Knee 3-/5 Ankle 3/5 Sensation Assessment Sensation Sensation Description Numbness Comments Sensation Comments c/o LLE numbness M6 PT-IP Treatment Start: 09/14/17 13:05 Freq: NEEDED Status: Active Protocol: Document 09/17/17 09:30 TMS (Rec: 09/17/17 10:20 TMS [email or web address]) Physical Therapy Treatment Exercises Exercises Ankle Pumps Gluteal Sets Quad Sets Education Education Provided Precautions Other Treatments Other Treatment Performed Active LAQ x 5 reps, attempted standing left L.E. march but unable to pick foot up off floor. M7 PT-IP Assessment and Plan Start: 09/14/17 13:05 Freq: NEEDED Status: Active Protocol: Document 09/17/17 09:30 TMS (Rec: 09/17/17 10:20 TMS [id number]) PT Summary Assessment and Plan Potential Rehabilitation Potential Fair Summary Impairments Pain ROM Strength Balance Coordination Sensation Tone Cognition Bed Mobility Transfers Gait Activity Tolerance Progress Towards Goals Slow Progress due to Pain Slow Progress due to Medical Issues Slow Progress due to Activity Tolerance Assessment Summary Pt. continues to struggle with mobility, less assist needed but gait is not functional at this point. Pt. not ready to return home, will need SNF for more rehab first. Frequency of Treatment Frequency Of Treatment Twice a Day Treatment Plan Physical Therapy Treatment Plan Bed Mobility Training Transfer Training Gait Training Therapeutic Exercise Balance Retraining Post Op Education Discharge Planning Hot or Cold Pack Neuromuscular Re-ed Coordination Retraining Manual Therapy Recommendations To Nursing Amount of Assist Needed 1 Person Assist Discharge Recommendations PT Discharge Recommendations SNF Rehab
--- NOTE | 2017-09-17 09:59 | PC.NURSE ---
Addendum entered by Cece Shaw R.N. 09/17/17 14:42: PT reports patient having difficulties lifting and bending left knee during ambulation. Dr. Pablo states, patient can DC home if able to ambulate hallways. PT assisted pt to BR and ambulating several feet in hallway. Patient still having difficulties with lifting and bending left leg. Patient reporting pain of 5-6/10 during ambulation and states she is able to tolerate the pain during ambulation, and that the pain increases when trying to get in and out of bed (to a 7/10). I spoke to pt's about renting walkers and toilet-seat raisers/commode for their house. When the mentioned to PT about purchasing a bedpan, PT discussed that if a bedpan is needed, then the pt should go to rehab before going home. Original Note: Addendum entered by Cece Shaw R.N. 09/17/17 10:32: BP medications held again this morning due to two low BPs of 128/56, HR 66 and BP 123/64 HR 69 at 1030. Patient request tylenol (650mg) for 2-3 out of 10 pain. Patient states she feels a lot better today. Original Note: Patient c/o 6/10 pain this this morning. Pain reported at 3-4 after 10mg Oxycodone and after being up with PT. PT will be suggesting SNF, patient requesting [facility] if SNF needed. SW is working to get approval from [employer].
--- NOTE | 2017-09-17 13:27 | PM.PNPO.1 ---
Subjective Date Patient Seen: 09/17/17 Time Patient Seen: 11:27 Interval history: Adri notes that she still having some moderate pain into her left hip which is much worse than her right hip. She has been able to ambulate but is not needed outside of the room. She notes her numbness into her left leg is improved in comparison to yesterday. Exam Vital Signs (past 8 hours): - 09/17/17 06:03 09/17/17 07:00 09/17/17 10:27 Temperature 97.9 F 97.4 F L Pulse Rate 75 70 69 Respiratory Rate 16 18 Blood Pressure 144/79 H 128/56 H 123/64 H Pulse Oximetry 96 97 09/17/17 10:31 09/17/17 10:40 09/17/17 12:00 Temperature 97.6 F 97.6 F 96.8 F L Pulse Rate 69 69 69 Respiratory Rate 18 18 16 Blood Pressure 123/64 H 123/64 H 123/68 H Pulse Oximetry 95 Oxygen Delivery Method Room Air Oxygen Flow Rate 0 Narrative Exam Narrative: Improved sensation in the left thigh, able to flex her hip with moderate weakness, weakness with attempted straight leg raise, dressing intact, calf soft bilaterally Objective Labs Result Diagrams: 09/14/17 05:35 Assessment & Plan Post-op Postoperative Procedures Operation Date: 09/13/17 11:45 Actual Procedures Side Surgeon p Total Hip Arthroplasty Left Basilio Mcdonald MD Postoperative status: other (She is improving after a left total hip arthroplasty but has had moderate pain and some difficulty mobilizing. I anticipate discharge to home to work us with outpatient physical therapy tomorrow. I strongly encouraged her to continue to work with physical therapy.) Postoperative plan: routine post-op care Time Spent With Patient less than 15 minutes Quality VTE Deep Vein Thrombosis/Pulmonary Embolism Present on Admission: No
--- NOTE | 2017-09-17 14:52 | PT.IPTN ---
Current Diagnoses Unilateral primary osteoarthritis, right hip (09/13/17) Surgery Performed Operation Date: 09/13/17 11:45 Actual Procedures p Total Hip Arthroplasty(Left) - Basilio Mcdonald MD Physical Therapy Treatment Note M2 PT-IP Current Condition Start: 09/14/17 13:05 Freq: NEEDED Status: Active Protocol: Document 09/17/17 14:32 TMS (Rec: 09/17/17 14:52 TMS [id number]) Physical Therapy Current Condition Current Condition Evaluation Date 09/14/17 Treatment Diagnosis s/p L SAL Onset Date 09/13/17 Precautions Posterior Hip Precautions No Hip Flexion > 90 degrees No Hip Internal Rotation No Hip Adduction Weight Bearing Status Weight Bearing Status Weight Bear as Tolerated M3 PT-IP Subjective Start: 09/14/17 13:05 Freq: NEEDED Status: Active Protocol: Document 09/17/17 14:32 TMS (Rec: 09/17/17 14:52 TMS [id number]) Subjective Physical Therapy Visit Type Type Treatment Note Visit Start Time 13:50 Visit Stop Time 14:25 Total Visit Minutes 35 Number of FUR LINER Visits 2 Physical Therapy Visit Comments Patient Comments Pt. sitting in chair, Dr. Pablo told her that if she can walk in najera this PM she can go home tomorrow. M4 PT-IP Mobility and Gait Start: 09/14/17 13:05 Freq: NEEDED Status: Active Protocol: Document 09/17/17 14:32 TMS (Rec: 09/17/17 14:52 TMS [id number]) PT-Bed Mobility Assessment Sit to Supine Sit to Supine Moderate Assistance PT-Transfer Assessment Sit to and From Stand Sit to and from Stand Contact Guard Assistance Equipment Transfer Assistive Device Gait Belt Front Wheeled Walker Transfers Transfer Destination Bed Toilet Transfer Technique Pt. ambulated to B.R., then to bed after gait. Transfer Ability Level of Assist Minimal Assistance Gait Assessment Gait Gait Assistance Required: Contact Guard Assist Distance (Feet) (feet) 80 Able to Maintain Weight Bearing Status Yes During Gait Assistive Devices Assistive Device Gait Belt Front Wheeled Walker Orthotic/Prosthetic Devices or Brace: No Gait Deviations General Gait Pattern Antalgic Decreased Stride Length Decreased Feet Clearance Step-to Gait Factors Limiting Gait Function Factors Limiting Gait Function Decreased Activity Tolerance Decreased Strength Limited Range of Motion Pain Comments Gait Comments Pt. clearing left foot better with gait, still isn't able to flex hip and lift foot off floor. M5 PT-IP Objective Assessments Start: 09/14/17 13:05 Freq: NEEDED Status: Active Protocol: Document 09/14/17 10:00 AB (Rec: 09/14/17 13:19 AB [id number]) Orientation Orientation/Cognition Level of Alertness Alert Orientation Name Safety Awareness Decreased Safety Awareness Strength Lower Extremity Strength Assessment Left Impaired Hip 3-/5 Knee 3-/5 Ankle 3/5 Sensation Assessment Sensation Sensation Description Numbness Comments Sensation Comments c/o LLE numbness M6 PT-IP Treatment Start: 09/14/17 13:05 Freq: NEEDED Status: Active Protocol: Document 09/17/17 14:32 TMS (Rec: 09/17/17 14:52 TMS [id number]) Physical Therapy Treatment Exercises Exercises Ankle Pumps Gluteal Sets Quad Sets Heel Slides Supine Hip Abduction Education Education Provided Precautions Other Treatments Other Treatment Performed Attempted standing left L.E. marching but still unable to lift foot off floor. M7 PT-IP Assessment and Plan Start: 09/14/17 13:05 Freq: NEEDED Status: Active Protocol: Document 09/17/17 14:32 TMS (Rec: 09/17/17 14:52 TMS [id number]) PT Summary Assessment and Plan Potential Rehabilitation Potential Fair Summary Impairments Pain ROM Strength Balance Coordination Sensation Tone Cognition Bed Mobility Transfers Gait Activity Tolerance Progress Towards Goals Slow Progress due to Pain Slow Progress due to Medical Issues Slow Progress due to Activity Tolerance Assessment Summary Pt. able to walk further this PM, able to clear foot off floor better then this AM but still struggles. If continues to progess should be able to return home tomorrow with 's assist. Recommendations To Nursing Amount of Assist Needed 1 Person Assist Discharge Recommendations PT Discharge Recommendations Home with Assistance SNF Rehab Other Discharge Recommendations To be determined.
--- NOTE | 2017-09-17 15:50 | OT.IP.TRT ---
Current Diagnoses Unilateral primary osteoarthritis, right hip (09/13/17) Surgery Performed Operation Date: 09/13/17 11:45 Actual Procedures p Total Hip Arthroplasty(Left) - Basilio Mcdonald MD Occupational Therapy Treatment Note M2 OT-IP Current Condition Start: 09/15/17 16:30 Freq: Status: Active Protocol: Document 09/15/17 16:38 CCC (Rec: 09/15/17 17:02 [facility] [id number]) Occupational Therapy Current Condition Current Condition Evaluation Date 09/15/17 Treatment Diagnosis Left Hip osteoarthritis Post Operative Precautions Posterior Hip Precautions No Hip Flexion > 90 degrees No Hip Internal Rotation No Hip Adduction Weight Bearing Status Weight Bearing Status Weight Bear as Tolerated M3 OT- IP Subjective and Pain Start: 09/15/17 16:30 Freq: Status: Active Protocol: Document 09/17/17 15:46 CCC (Rec: 09/17/17 15:50 [facility] [id number]) OT- Subjective Occupational Therapy Visit Type Type Patient Refusal Notes Pt concerned about going home, to do family training with for bathing and dressing needs tomorrow. Per LEGAL WRITING PROFESSOR pt still having diffculty lifting LLE and needing assist for bed mobility.
[2017-09-17] MEDS: DOXYCYCLINE HYCLATE 100 MG TABLET 50 MG PO (18:40)
[2017-09-17] MEDS: SIMVASTATIN 10 MG TABLET PO (18:40)
--- NOTE | 2017-09-17 22:35 | PC.NURSE ---
A&O, VSS, 95% on RA. Pain managed w/ oxycodone/Vistaril/Tylenol. No N/V, no BM in a few days, BT positive, passing gas and taking stool softeners. Coversite C/D/I. R H PIV SL. Complaint of possible thrush by pt, per pt has had this post op before, tongue w/ minimal white film coating on back of tongue. Will pass on to next RN to pass on to MD and advised pt to also inform MD tomorrow during rounds. Up w/ 1p assist and FWW. Plan for dc to SNF or home tomorrow. at bedside.
[2017-09-18] MEDS: HYDROCODONE/ACET 5/325 TABLET 1 TAB PO (05:28)
[2017-09-18] MEDS: ACETAMINOPHEN 325 MG TABLET 650 MG PO ×2 (06:09→13:45)
[2017-09-18] MEDS: hydrOXYzine pamoate 25 MG CAPSULE PO (06:09)
[2017-09-18 06:10] VITALS: BP 150/73; PULSE 85; RESP 16; TEMP 37.4; O2SAT 95
[2017-09-18 08:03] VITALS: BP 145/74; PULSE 65; RESP 16; TEMP 37.1; O2SAT 96
[2017-09-18] MEDS: OXYCODONE IR 10 MG TABLET PO ×2 (08:15→12:30)
[2017-09-18] MEDS: DOCUSATE 100 MG CAPSULE PO (08:16)
[2017-09-18] MEDS: CALCIUM CARBONATE 600 MG TABLET PO (08:17)
[2017-09-18] MEDS: MAGNESIUM HYDROXIDE 30 ML UDC PO (08:40)
[2017-09-18] MEDS: ATENOLOL 50 MG TABLET 100 MG PO (08:41)
[2017-09-18] MEDS: ENOXAPARIN 40 MG/0.4 ML SYRINGE SUBCUT (08:50)
[2017-09-18] MEDS: MAGNESIUM OXIDE 400 MG TABLET 200 MG PO (08:51)
[2017-09-18 09:19] VITALS: BP 149/79
--- NOTE | 2017-09-18 10:21 | OT.IP.TRT ---
Current Diagnoses Unilateral primary osteoarthritis, right hip (09/13/17) Surgery Performed Operation Date: 09/13/17 11:45 Actual Procedures p Total Hip Arthroplasty(Left) - Basilio Mcdonald MD Occupational Therapy Treatment Note M2 OT-IP Current Condition Start: 09/15/17 16:30 Freq: Status: Active Protocol: Document 09/15/17 16:38 CCC (Rec: 09/15/17 17:02 [facility] [id number]) Occupational Therapy Current Condition Current Condition Evaluation Date 09/15/17 Treatment Diagnosis Left Hip osteoarthritis Post Operative Precautions Posterior Hip Precautions No Hip Flexion > 90 degrees No Hip Internal Rotation No Hip Adduction Weight Bearing Status Weight Bearing Status Weight Bear as Tolerated M3 OT- IP Subjective and Pain Start: 09/15/17 16:30 Freq: Status: Active Protocol: Document 09/18/17 10:05 [facility] (Rec: 09/18/17 10:21 [facility] [id number]) OT- Subjective Occupational Therapy Visit Type Type Treatment Note Visit Start Time 08:45 Visit Stop Time 09:25 Total Visit Minutes 40 Occupational Therapy Visit Comments Patient/Caregiver Goals Pt feeling more comfortable with the idea of going home with versus SNF. OT Pain Assessment Pain When Pain Assessed At Rest Pain Present Pain Present Denied Pain M4 OT- IP ADL's Start: 09/15/17 16:30 Freq: Status: Active Protocol: Document 09/18/17 10:05 [facility] (Rec: 09/18/17 10:21 [facility] [id number]) OT ADL-Grooming General Evaluation Grooming Ability Standby Assistance Areas Needing Assistance Retrieving/Set-up of Grooming Items Comments OT Grooming Comments Pt able to stand for 5 minutes to do own grooming needs. OT ADL-Toileting General Evaluation Toileting Ability Standby Assistance Devices Toileting Assistive Devices Commode Grab Bars Comments OT Toileting Comments Pt CGA x1 with FWW and use of grab bar and BSC. Pt's able to assist pt for all needs. OT ADL-Bathing Comments OT Bathing Comments Aid able to shower pt early AM . M6 OT- IP Functional Cognition Start: 09/15/17 16:30 Freq: Status: Active Protocol: Document 09/18/17 10:05 [facility] (Rec: 09/18/17 10:21 [facility] [id number]) Cognitive Factors Limiting Selfcare Function Cognitive Ability Level of Alertness Alert Patient Orientation Name Place Situation Attention Span Ability Capable of Focused Attention Capable of Sustained Attention Ability to Follow Commands Able to Follow Multi-Step Commands Memory Description No Deficits Noted Safety Awareness No Deficits Noted Cognitive Comments Cognitive Assessment Comments Pt doing much better today with hip precautions and safety awareness needs. Pt's has good understanding for all hip precautions for ADl needs. M7 OT- IP Mobility and Balance Start: 09/15/17 16:30 Freq: Status: Active Protocol: Document 09/18/17 10:05 [facility] (Rec: 09/18/17 10:21 [facility] [email or web address]) OT- Bed Mobility Assessment Sit to Supine Sit to Supine Assist Minimal Assistance 1 Person Assistance Scooting Scooting to Edge of Bed Standby Assistance OT-Transfer Assessment Sit to and From Stand Sit to and from Stand Standby Assistance Minimal Assistance Transfers Transfer Ability Standby Assistance Technique Transfer Destination Bed Chair Toilet Transfer Technique Stand Step Pivot Devices Transfer Assistive Devices Gait Belt Front Wheeled Walker Comments Mobility Comments Pt doing much better today, still not able to place much weight on LLE but able to picking supervisor for LLE to take steps with FWW. Pt still needing assist to get LLE into and out of the bed, pt's able to show good safety for this. OT- Balance Assessment Sitting Balance and Reactions Static Sitting Balance Ability Normal Dynamic Sitting Balance Ability Normal Standing Balance and Reactions Static Standing Balance Ability Good Dynamic Standing Balance Ability Fair M8 OT- IP Objective Assessments Start: 09/15/17 16:30 Freq: Status: Active Protocol: Document 09/15/17 16:38 [facility] (Rec: 09/15/17 17:02 [facility] [id number]) OT Gross Range of Motion Upper Extremity Range of Motion Assessment Within Functional Limits OT-Muscle Tone Assessment Muscle Tone WNL Yes M9 OT- IP Assessment and Plan Start: 09/15/17 16:30 Freq: Status: Active Protocol: Document 09/18/17 10:05 [facility] (Rec: 09/18/17 10:21 [facility] [id number]) OT Summary Assessment and Plan Potential Rehabilitation Potential Good Summary OT Impairments Pain Strength Balance Functional Mobility Dressing Bathing Shower Transfers Progress Towards Goals Progressing Toward Goals Assessment Summary Pt much improved, however still slow to move LLE. Pt's able to show good safety and understanding for all OT needs to assist pt for ADL's and functional mobility. PT to still work with pt regarding steps while will be her biggest barrier. Goals Dressing Goal Standby Assistance Toileting Goal Contact Guard Assistance Bathing Goal Minimal Assistance Patient/Caregiver Education Goal Caregiver Independent Assisting Patient Days to Meet Goals 1 Frequency of Treatment Frequency Of Treatment Once a Day Treatment Plan OT Treatment Plan ADL Training Patient/Family Education Discharge Planning Other Treatment Recommendations and Next Finalize all OT traiing with Treatment Focus pt and caregiver. Discharge Recommendations OT Discharge Recommendations Home with Assistance Home Health SNF Rehab Home Equipment Needs [facility]
--- NOTE | 2017-09-18 11:00 | PT.IPTN ---
Current Diagnoses Unilateral primary osteoarthritis, right hip (09/13/17) Surgery Performed Operation Date: 09/13/17 11:45 Actual Procedures p Total Hip Arthroplasty(Left) - Basilio Mcdonald MD Physical Therapy Treatment Note M2 PT-IP Current Condition Start: 09/14/17 13:05 Freq: NEEDED Status: Active Protocol: Document 09/18/17 11:00 TMS (Rec: 09/18/17 17:24 TMS [email or web address]) Physical Therapy Current Condition Current Condition Evaluation Date 09/14/17 Treatment Diagnosis s/p L SAL Onset Date 09/13/17 Precautions Posterior Hip Precautions No Hip Flexion > 90 degrees No Hip Internal Rotation No Hip Adduction Weight Bearing Status Weight Bearing Status Weight Bear as Tolerated M3 PT-IP Subjective Start: 09/14/17 13:05 Freq: NEEDED Status: Active Protocol: Document 09/18/17 15:01 RS (Rec: 09/18/17 15:05 RS [id number]) Subjective Physical Therapy Visit Type Type Treatment Note Visit Start Time 14:38 Visit Stop Time 15:01 Total Visit Minutes 23 Physical Therapy Visit Comments Patient Comments Pt very excited to be going home today, concerned about getting into the car. M4 PT-IP Mobility and Gait Start: 09/14/17 13:05 Freq: NEEDED Status: Active Protocol: Document 09/18/17 11:00 TMS (Rec: 09/18/17 17:24 TMS [id number]) PT-Bed Mobility Assessment Supine to Sit Supine to Sit Moderate Assistance PT-Transfer Assessment Sit to and From Stand Sit to and from Stand Contact Guard Assistance Equipment Transfer Assistive Device Gait Belt Front Wheeled Walker Comments Mobility Comments Pt. struggled with supine>sit but able to assist her with Moderate assist. Gait Assessment Gait Gait Assistance Required: Contact Guard Assist Distance (Feet) (feet) 200 Able to Maintain Weight Bearing Status Yes During Gait Assistive Devices Assistive Device Gait Belt Front Wheeled Walker Orthotic/Prosthetic Devices or Brace: No Gait Deviations General Gait Pattern Antalgic Decreased Stride Length Decreased Feet Clearance Step-to Gait Factors Limiting Gait Function Factors Limiting Gait Function Decreased Activity Tolerance Decreased Strength Limited Range of Motion Pain Comments Gait Comments Pt. with increased endurance and ability to clear left foot off floor with gait. Stair Climbing Assessment Evaluation Level of Assist On Stairs Contact Guard Assistance Devices Stair Climbing Assistive Devices Front Wheel Walker Technique/Endurance Stair Climbing Direction Ascend and Descend Stair Climbing Technique Step to Step Number of Steps Climbed 1 Query Text: Stair Climbing Set # Repetitions (reps) 1 Comments Stair Climbing Comments Pt. transported to platform step via w.c., walked back. CGA and cues needed for 1 platform step. M5 PT-IP Objective Assessments Start: 09/14/17 13:05 Freq: NEEDED Status: Active Protocol: Document 09/14/17 10:00 AB (Rec: 09/14/17 13:19 AB [id number]) Orientation Orientation/Cognition Level of Alertness Alert Orientation Name Safety Awareness Decreased Safety Awareness Strength Lower Extremity Strength Assessment Left Impaired Hip 3-/5 Knee 3-/5 Ankle 3/5 Sensation Assessment Sensation Sensation Description Numbness Comments Sensation Comments c/o LLE numbness M6 PT-IP Treatment Start: 09/14/17 13:05 Freq: NEEDED Status: Active Protocol: Document 09/17/17 14:32 TMS (Rec: 09/17/17 14:52 TMS [id number]) Physical Therapy Treatment Exercises Exercises Ankle Pumps Gluteal Sets Quad Sets Heel Slides Supine Hip Abduction Education Education Provided Precautions Other Treatments Other Treatment Performed Attempted standing left L.E. marching but still unable to lift foot off floor. M7 PT-IP Assessment and Plan Start: 09/14/17 13:05 Freq: NEEDED Status: Active Protocol: Document 09/18/17 15:01 RS (Rec: 09/18/17 15:05 RS [id number]) PT Summary Assessment and Plan Summary Assessment Summary Pt is CGA<>supervision with most mobility, has completed caregiver training and is able to safely provided the needed level of assist. Pt/SO have now also completed car transfer training and are ready to d/c home. Acute Pt will sign off. Frequency of Treatment Frequency Of Treatment Discharge Recommendations To Nursing Amount of Assist Needed 1 Person Assist Discharge Recommendations PT Discharge Recommendations Home with Assistance
--- NOTE | 2017-09-18 11:17 | CM.DPC ---
DCP/Continued: Reviewed chart. Received notification in AM rounds that patient will be discharging home today. Per therapy patient has improved significantly and no longer requiring SNF. SHIPPING POINT INSPECTOR met with patient and significant other at bedside explained role. Patient in agreement to return home with outpatient therapy on [facility]. Patient reports that she already has outpatient appointment but is not sure of date/time. Patient reports having all needed DME. Patient is requiring priority boarding pass for [place] at 3:45pm today. No additional needs identified. RN updated. SHIPPING POINT INSPECTOR confirmed above information with Ortho/PA David Frank. P: Home today. SHIPPING POINT INSPECTOR will notify of [place] of updated d/c plan. RASHMI Aguero
--- NOTE | 2017-09-18 12:01 | PC.NURSE ---
Am shift note Pt is a/ox3, feels stronger and would like to consider d/c planning to home instead of [facility] today. Pt into work with Pt and completed stair training. CMS improved, LLE remains weaker and requires more purposeful movement, but improved from yesterdays assessment from this Rn. Medicating for pain, declines suppository this AM, MOM given with Fran. Education on constipation provided. Add-PT agreeable in d/c home, orders rec'd. ANDI Roche into see Pt incision, and informed of fluid filled blisters on dressing line. Redressed and positioned for comfort. Pt to monitor for post op comlications upon d/c, follow up appt for [facility] 09/19 cancelled, completed at bedside today. Questions answered with spouse and Pt. Pt concerned for increased pain with swallowing and Hx of Thrush post op last hip, no white patches noted in oral mucosa, but rec'd order for Nystatin swish and spit for d/c.
--- NOTE | 2017-09-18 12:27 | P.DS_ITS ---
History of Present Illness Date Patient Seen: 09/18/17 Time Patient Seen: 12:22 Chief complaint: rt total hip arthroplasty 18919 Narrative: Patient's pain is [id number]. She has been up walking with physical therapy. Her 's home to assist her. They only have 1 step into the house to navigate. She denies fever chills. She is otherwise without complaints. Patient does feel ready to be discharged home. Discharge Providers Date of admission: 09/13/17 10:10 Primary care physician: Donavon Howard MD Consults: 09/13/17 14:41 Consult to Discharge Planning Routine Comment: Consult to Physical Therapy Evaluate & Treat Comment: Physician Instructions: post op SAL protocol 09/15/17 08:37 Consult to Occupational Therapy Evaluate & Treat Comment: Physician Instructions: Evaluate and treat Discharge provider: Melchor Frank PA-C Summary Discharge Diagnosis: Status post left total hip arthroplasty Hospital Course: Patient is an 61-year-old female with severe left hip DJD. The patient has pain with activities and at rest, limited ambulation and activity tolerance, difficulties with ADLs, and failure of conservative treatment. We have discussed the nature of condition, treatment options, risks and benefits, and patient elects to proceed with total hip arthroplasty and gives informed consent. Surgeon: Basilio Mcdonald Spa Experience Coordinator: Chel Duron Anesthesia Type: Spinal Patient had some numbness right leg after surgery which limited her mobility rehab with physical therapy. No longer having numbness in the lower extremities. Exam Vital Signs (past 8 hours): - 09/18/17 06:10 09/18/17 08:03 09/18/17 09:19 Temperature 99.3 F 98.8 F Pulse Rate 85 65 Respiratory Rate 16 16 Blood Pressure 150/73 H 145/74 H 149/79 H Pulse Oximetry 95 96 Oxygen Delivery Method Room Air Oxygen Flow Rate 0 Narrative Exam Narrative: Pleasant 61-year-old female resting comfortably in bed in no apparent distress. Left hip incision clean dry with brigitte intact. She has 3 quarter-sized blisters still intact along the posterior hip. Wpin-cp-aeqvsnta swelling no fluctuance. There is no drainage from the incision itself. Motor functions intact bilateral lower extremities. Sensation grossly intact distal bilateral lower extremities. Objective Labs Result Diagrams: 09/14/17 05:35 Discharge Plan Discharge Plan Patient Disposition: Home, Self-Care Discharge comment: DC home today Discharge Med Rec/Prescriptions Prescriptions: New enoxaparin [Lovenox] 40 mg/0.4 mL Syringe 40 mg Sub-Q DAILY Qty: 8 RF: 0 Continue multivitamin [Multiple Vitamins] 1 EACH tablet 1 tab PO QDAY Qty: 0 RF: 0 atenolol 100 MG tablet 100 mg PO QDAY Qty: 0 RF: 0 doxycycline monohydrate 50 MG tablet 50 mg PO QDAY Qty: 0 RF: 0 hydrochlorothiazide 25 MG tablet 25 mg PO QDAY Qty: 0 RF: 0 vit A-vit X-grvt-qfxjayjv [Zinc with Vitamins A and C] 15 mg Lozenge See Label Instructions .ROUTE .COMPLEX Qty: 0 RF: 0 simvastatin 10 mg Tablet 10 mg PO QPM RF: 0 calcium carbonate 600 mg calcium (1,500 mg) Tablet 600 mg PO DAILY RF: 0 losartan 25 mg Tablet 25 mg PO DAILY RF: 0 magnesium 200 mg Tablet 200 mg PO DAILY RF: 0 Discontinued enoxaparin [Lovenox] 40 MG/0.4 ML syringe 40 mg SQ QDAY Qty: 8 RF: 0 Follow up/Referrals: Basilio Mcdonald MD [Physician] - (Follow up 5 day-7 days) Donavon Howard MD [Primary Care Provider] - Provider Discharge Instructions Diet: Diet as Tolerated Activity: Weightbearing as tolerated. Continue posterior precautions. Other treatments: Continue Lovenox as prescribed. Patient has been given oxycodone prescription prior for home use. She will continue Tylenol 1000 mg 3 times daily. Wound Care Report to your healthcare provider any signs of infection, such as:: chills, fever, increased pain and unusual drainage Dressing: Wound care instructions reviewed with the patient and her . Keep dressing clean and dry. If any concerns should follow up with his [facility] Visit Report/Discharge Packet Instructions: DI for Hip Replacement, Enoxaparin Injection Discharge Data Primary Care Provider: Donavon Howard Attending Provider: Basilio Mcdonald Admit Date/Time: 09/13/17 10:10 Quality VTE Deep Vein Thrombosis/Pulmonary Embolism Present on Admission: No
[2017-09-18 12:37] VITALS: BP 130/71; O2SAT 96
[2017-09-18] MEDS: STORED IN PHARMACY 1 EACH PO (12:51)
[2017-09-18] MEDS: BISACODYL 10 MG SUPP PR (12:52)
[2017-09-18 12:57] VITALS: BP 130/70; PULSE 63; RESP 16; TEMP 36.7; O2SAT 98
--- NOTE | 2017-09-18 13:59 | PC.NURSE ---
Patient packed up, dressed in personal clothes, and in wheelchair. Discharge instructions given to patient and ; all questions answered; IV removed, no tele. Patient used BR before leaving; unmeasured void and medium-loose, BM
--- NOTE | 2017-09-18 15:05 | PT.IPTN ---
Current Diagnoses Unilateral primary osteoarthritis, right hip (09/13/17) Surgery Performed Operation Date: 09/13/17 11:45 Actual Procedures p Total Hip Arthroplasty(Left) - Basilio Mcdonald MD Physical Therapy Treatment Note M2 PT-IP Current Condition Start: 09/14/17 13:05 Freq: NEEDED Status: Active Protocol: Document 09/17/17 14:32 TMS (Rec: 09/17/17 14:52 TMS [id number]) Physical Therapy Current Condition Current Condition Evaluation Date 09/14/17 Treatment Diagnosis s/p L SAL Onset Date 09/13/17 Precautions Posterior Hip Precautions No Hip Flexion > 90 degrees No Hip Internal Rotation No Hip Adduction Weight Bearing Status Weight Bearing Status Weight Bear as Tolerated M3 PT-IP Subjective Start: 09/14/17 13:05 Freq: NEEDED Status: Active Protocol: Document 09/18/17 15:01 RS (Rec: 09/18/17 15:05 RS [id number]) Subjective Physical Therapy Visit Type Type Treatment Note Visit Start Time 14:38 Visit Stop Time 15:01 Total Visit Minutes 23 Physical Therapy Visit Comments Patient Comments Pt very excited to be going home today, concerned about getting into the car. M4 PT-IP Mobility and Gait Start: 09/14/17 13:05 Freq: NEEDED Status: Active Protocol: Document 09/17/17 14:32 TMS (Rec: 09/17/17 14:52 TMS [id number]) PT-Bed Mobility Assessment Sit to Supine Sit to Supine Moderate Assistance PT-Transfer Assessment Sit to and From Stand Sit to and from Stand Contact Guard Assistance Equipment Transfer Assistive Device Gait Belt Front Wheeled Walker Transfers Transfer Destination Bed Toilet Transfer Technique Pt. ambulated to B.R., then to bed after gait. Transfer Ability Level of Assist Minimal Assistance Gait Assessment Gait Gait Assistance Required: Contact Guard Assist Distance (Feet) (feet) 80 Able to Maintain Weight Bearing Status Yes During Gait Assistive Devices Assistive Device Gait Belt Front Wheeled Walker Orthotic/Prosthetic Devices or Brace: No Gait Deviations General Gait Pattern Antalgic Decreased Stride Length Decreased Feet Clearance Step-to Gait Factors Limiting Gait Function Factors Limiting Gait Function Decreased Activity Tolerance Decreased Strength Limited Range of Motion Pain Comments Gait Comments Pt. clearing left foot better with gait, still isn't able to flex hip and lift foot off floor. M5 PT-IP Objective Assessments Start: 09/14/17 13:05 Freq: NEEDED Status: Active Protocol: Document 09/14/17 10:00 AB (Rec: 09/14/17 13:19 AB [id number]) Orientation Orientation/Cognition Level of Alertness Alert Orientation Name Safety Awareness Decreased Safety Awareness Strength Lower Extremity Strength Assessment Left Impaired Hip 3-/5 Knee 3-/5 Ankle 3/5 Sensation Assessment Sensation Sensation Description Numbness Comments Sensation Comments c/o LLE numbness M6 PT-IP Treatment Start: 09/14/17 13:05 Freq: NEEDED Status: Active Protocol: Document 09/17/17 14:32 TMS (Rec: 09/17/17 14:52 TMS [id number]) Physical Therapy Treatment Exercises Exercises Ankle Pumps Gluteal Sets Quad Sets Heel Slides Supine Hip Abduction Education Education Provided Precautions Other Treatments Other Treatment Performed Attempted standing left L.E. marching but still unable to lift foot off floor. M7 PT-IP Assessment and Plan Start: 09/14/17 13:05 Freq: NEEDED Status: Active Protocol: Document 09/18/17 15:01 RS (Rec: 09/18/17 15:05 RS [id number]) PT Summary Assessment and Plan Summary Assessment Summary Pt is CGA<>supervision with most mobility, has completed caregiver training and is able to safely provided the needed level of assist. Pt/SO have now also completed car transfer training and are ready to d/c home. Acute Pt will sign off. Frequency of Treatment Frequency Of Treatment Discharge Recommendations To Nursing Amount of Assist Needed 1 Person Assist Discharge Recommendations PT Discharge Recommendations Home with Assistance
== END 2017-09-18 14:50 | disposition home or self-care (01) | DRG 470 ==
PROVIDERS: Admitting Provider Orthopaedic Surgery; Family Provider Family Medicine; PCP Family Medicine; Visit Provider Orthopaedic Surgery
PROC: 0SRB0JZ Replacement of Left Hip Joint with Synthetic Substitute, Open Approach (ICD-10-PCS; CPT 27130; principal; 2017-09-13 11:45)
DX: M16.12 Unilateral primary osteoarthritis, left hip (principal); I10 Essential (primary) hypertension; Z87.891 Personal history of nicotine dependence; Z96.641 Presence of right artificial hip joint
CPT/HCPCS: 36415; 36592; 72170; 85014; 85018; 94762; 97110; 97116; 97162; 97166; 97530; 97535; C1776; C9290; J0690; J1100; J1170; J1200; J1650; J2250; J2274; J2405; J2704; J3010

== ENCOUNTER → 2018-07-11 11:16 | Outpatient (CLI) | payer OTHER, SELFPAY ==
[2017-09-13 17:58] VITALS: BMI 29.8
--- NOTE | 2018-07-11 | DI.RAD.S_ITS ---
PROCEDURE: XR CERVICAL SPINE 2V OR 3V INDICATIONS: Pain in cervical and thoracic spine TECHNIQUE: 3 view(s) of the cervical spine were acquired. COMPARISON: None. FINDINGS: Bones: No fractures or dislocations to the T1 level. There is a moderately severe degree of degenerative disc disease at C4-5 and C5-6 and slightly less at C6-7. No subluxation is associated The lateral masses of C1 appear intact on the odontoid view. No suspicious bony lesions. Soft tissues: No prevertebral soft tissue swelling. IMPRESSION: Moderately severe mid cervical degenerative disc disease extending into the C6-C7 level without subluxation. No trauma found. Dictated by: Fletcher Devine M.D. on 07/11/2018 at 12:48 Approved by: Fletcher Devine M.D. on 07/11/2018 at 12:49
--- NOTE | 2018-07-11 | DI.RAD.S_ITS ---
PROCEDURE: XR THORACIC SPINE 2V INDICATIONS: Pain in thoracic spine TECHNIQUE: 3 views of the thoracic spine were acquired. COMPARISON: None. FINDINGS: Bones: No fractures or dislocations. No suspicious bony lesions. 12 pairs of ribs are noted, and appear intact where visualized. There is a mild to moderate degree of degenerative disc disease as seen are half of the L-spine and no area of compression fracture is found. Soft tissues: No paravertebral stripe thickening. IMPRESSION: Mild to moderate degenerative disc disease of the lower half of the thoracic spine but no acute trauma found. Dictated by: Fletcher Devine M.D. on 07/11/2018 at 12:25 Approved by: Fletcher Devine M.D. on 07/12/2018 at 12:21
== END ==
PROVIDERS: Family Provider Family Medicine; PCP Family Medicine; Visit Provider Chiropractor
DX: M50.321 Other cervical disc degeneration at C4-C5 level (principal); M51.34 Other intervertebral disc degeneration, thoracic region
CPT/HCPCS: 72040; 72070

== ENCOUNTER → 2020-09-22 08:49 | Outpatient (CLI) | payer MEDICARE, OTHER, SELFPAY ==
[2017-09-13 17:58] VITALS: BMI 29.8
[2020-09-22 19:29] LABS: Add Manual Diff / Slide Review NO; Basophils Absolute Auto 0 /uL (0-100); Basophils Percent Auto 0.3 % (0-2); Eosinophils Absolute Auto 200 /uL (0-450); Eosinophils Percent Auto 2.1 % (2-4); Hematocrit 44.1 % (36-46); Lymphocytes Absolute Auto 3200 /uL (1100-4500); Lymphocytes Percent Auto 40.1 % (25-40); Mean Corpuscular Hemoglobin 33.2 PG (26-34); Mean Corpuscular Volume 97.4 fL (80-100); Monocytes Absolute Auto 700 /uL (0-900); Monocytes Percent Auto 8.6 % (3-14); Neutrophils Absolute Auto 3900 /uL (1500-7000); Neutrophils Percent Auto 48.9 % (50-75); Platelet Count 236 X10^3/uL (150-400); Red Blood Cell Count 4.53 X10^6/uL (4.0-5.2); Red Cell Distribution Width 13.5 % (11.6-14.8)
[2020-09-22 19:45] LABS: Alanine Aminotransferase 25 IU/L (<35); Albumin 4.4 g/dL (3.5-5.0); Albumin Globulin Ratio 1.7 (1.0-2.8); Alkaline Phosphatase 77 U/L (38-126); Aspartate Aminotransferase 34 IU/L (14-36); BUN Creatinine Ratio 32.8 (6-22); Bilirubin Total 0.6 mg/dL (0.2-1.3); Blood Urea Nitrogen 22 mg/dL (7-17); Calcium 9.7 mg/dL (8.4-10.2); Carbon Dioxide 32 mmol/L (22-32); Chloride 102 mmol/L (98-107); Cholesterol 206 mg/dL (140-199); Estimated Glomerular Filt Rate > 60.0 mL/min (>60); Globulin 2.6 g/dL (1.7-4.1); Glucose 102 mg/dL (80-110); HDL Cholesterol 49 mg/dL (40-60); HEMOLYSIS < 15 (0-50); LDL Cholesterol Calculated 90 mg/dL (<100); Potassium 4.3 mmol/L (3.4-5.1); Sodium 141 mmol/L (137-145); Triglycerides 333 mg/dL (35-150)
== END ==
PROVIDERS: Family Provider Family Medicine; PCP Physician Assistant; Visit Provider Physician Assistant
DX: E78.5 Hyperlipidemia, unspecified (principal); I10 Essential (primary) hypertension; Z92.29 Personal history of other drug therapy
CPT/HCPCS: 80053; 80061; 85025

== ENCOUNTER → 2021-05-07 08:19 | Outpatient (CLI) | payer MEDICARE, OTHER, SELFPAY ==
[2017-09-13 17:58] VITALS: BMI 29.8
[2021-05-07 19:51] LABS: Alanine Aminotransferase 20 IU/L (<35); Albumin 4.1 g/dL (3.5-5.0); Albumin Globulin Ratio 1.6 (1.0-2.8); Alkaline Phosphatase 63 U/L (38-126); Aspartate Aminotransferase 31 IU/L (14-36); BUN Creatinine Ratio 26.3 (6-22); Bilirubin Total 0.7 mg/dL (0.2-1.3); Blood Urea Nitrogen 20 mg/dL (7-17); Calcium 9.6 mg/dL (8.4-10.2); Carbon Dioxide 34 mmol/L (22-32); Chloride 102 mmol/L (98-107); Cholesterol 180 mg/dL (140-199); Estimated Glomerular Filt Rate > 60.0 mL/min (>60); Globulin 2.5 g/dL (1.7-4.1); Glucose 113 mg/dL (80-110); HDL Cholesterol 42 mg/dL (40-60); HEMOLYSIS < 15 (0-50); LDL Cholesterol Calculated 98 mg/dL (<100); Sodium 138 mmol/L (137-145); Total Protein 6.6 g/dL (6.3-8.2); Triglycerides 198 mg/dL (35-150)
== END ==
PROVIDERS: Family Provider Family Medicine; PCP Physician Assistant; Visit Provider Physician Assistant
DX: I10 Essential (primary) hypertension (principal); E78.5 Hyperlipidemia, unspecified; Z79.899 Other long term (current) drug therapy
CPT/HCPCS: 80053; 80061

== ENCOUNTER → 2021-12-08 14:25 | Outpatient (CLI) | payer MEDICARE, OTHER, SELFPAY ==
[2017-09-13 17:58] VITALS: BMI 29.8
[2021-12-08 21:28] LABS: BUN Creatinine Ratio 28.8 (6-22); Blood Urea Nitrogen 21 mg/dL (7-17); Calcium 9.5 mg/dL (8.4-10.2); Carbon Dioxide 29 mmol/L (22-32); Chloride 100 mmol/L (98-107); Estimated Glomerular Filt Rate > 60 mL/min (>60); Glucose 134 mg/dL (80-110); HEMOLYSIS < 15 (0-50); Potassium 3.7 mmol/L (3.4-5.1); Sodium 140 mmol/L (137-145)
== END ==
PROVIDERS: Family Provider Family Medicine; PCP Physician Assistant; Visit Provider Nurse Practitioner
DX: I48.91 Unspecified atrial fibrillation (principal); Z51.81 Encounter for therapeutic drug level monitoring
CPT/HCPCS: 80048

== ENCOUNTER → 2022-02-21 06:59 | Outpatient (CLI) | payer MEDICARE, OTHER, SELFPAY ==
[2017-09-13 17:58] VITALS: BMI 29.8
[2022-02-21 21:56] LABS: COVID19 - ORCAS (NP or Nasal) Negative (Negative)
== END ==
PROVIDERS: Family Provider Family Medicine; PCP Physician Assistant; Visit Provider Physician Assistant
DX: Z20.822 Contact with and (suspected) exposure to COVID-19 (principal); Z01.812 Encounter for preprocedural laboratory examination
CPT/HCPCS: C9803; U0003

== ENCOUNTER → 2022-05-12 11:07 | Outpatient (CLI) | payer MEDICARE, OTHER, SELFPAY ==
[2017-09-13 17:58] VITALS: BMI 29.8
[2022-05-12 20:03] LABS: Add Manual Diff / Slide Review NO; Basophils Absolute Auto 100 /uL (0-100); Basophils Percent Auto 0.8 % (0-2); Eosinophils Absolute Auto 200 /uL (0-450); Eosinophils Percent Auto 2.2 % (2-4); Hematocrit 46.1 % (36-46); Hemoglobin 15.6 g/dL (12.0-16.0); Lymphocytes Absolute Auto 2500 /uL (1100-4500); Lymphocytes Percent Auto 34.8 % (25-40); Mean Corpuscular HGB Conc 33.8 % (30-36); Mean Corpuscular Hemoglobin 31.8 PG (26-34); Mean Corpuscular Volume 94.1 fL (80-100); Monocytes Absolute Auto 500 /uL (0-900); Monocytes Percent Auto 7.4 % (3-14); Neutrophils Absolute Auto 3900 /uL (1500-7000); Neutrophils Percent Auto 54.8 % (50-75); Platelet Count 299 X10^3/uL (150-400); Red Cell Distribution Width 13.5 % (11.6-14.8); White Blood Cell Count 7.2 X10^3/uL (4.5-11.0)
[2022-05-12 20:16] LABS: Alanine Aminotransferase 34 IU/L (<35); Albumin 4.6 g/dL (3.5-5.0); Albumin Globulin Ratio 1.6 (1.0-2.8); Alkaline Phosphatase 94 U/L (38-126); Aspartate Aminotransferase 34 IU/L (14-36); BUN Creatinine Ratio 16.2 (6-22); Blood Urea Nitrogen 11 mg/dL (7-17); Calcium 9.8 mg/dL (8.4-10.2); Carbon Dioxide 31 mmol/L (22-32); Chloride 99 mmol/L (98-107); Cholesterol 162 mg/dL (140-199); Estimated Glomerular Filt Rate > 60 mL/min (>60); Globulin 2.9 g/dL (1.7-4.1); Glucose 117 mg/dL (80-110); HDL Cholesterol 60 mg/dL (40-60); HEMOLYSIS < 15 (0-50); LDL Cholesterol Calculated 70 mg/dL (<100); Potassium 3.9 mmol/L (3.4-5.1); Sodium 139 mmol/L (137-145); Total Protein 7.5 g/dL (6.3-8.2); Triglycerides 159 mg/dL (35-150)
[2022-05-12 20:43] LABS: TSH w/ Reflex to FT4 1.89 uIU/mL (0.47-4.68)
== END ==
PROVIDERS: Family Provider Family Medicine; PCP Physician Assistant; Visit Provider Physician Assistant
DX: S62.102A Fracture of unspecified carpal bone, left wrist, initial encounter for closed fracture (principal); R53.83 Other fatigue; I10 Essential (primary) hypertension; E78.5 Hyperlipidemia, unspecified; Z79.899 Other long term (current) drug therapy
CPT/HCPCS: 80053; 80061; 84443; 85025

== ENCOUNTER → 2022-06-23 11:10 | Outpatient (CLI) | payer MEDICARE, OTHER, SELFPAY ==
[2017-09-13 17:58] VITALS: BMI 29.8
--- NOTE | 2022-06-23 11:13 | DI.US.S_ITS ---
PROCEDURE: US THYROID INDICATIONS: left hypoatenuating thyroid nodules, largest 1.8cm on MRI TECHNIQUE: Real-time scanning was performed of the thyroid gland, with image documentation. COMPARISON: None. FINDINGS: Right: Thyroid lobe measures 4.9 x 1.8 x 1.6 cm, and is homogeneous in echotexture. Left: Thyroid lobe measures 5.2 x 1.4 x 1.9 cm, and is homogenous in echotexture. Isthmus: 3 mm thick. Nodule number: 1 Location: Right inferior pole Size: 0.7 x 0.4 x 0.6 cm. Composition: Mixed solid and cystic Echogenicity: Hypoechoic Shape: wider than tall. Margins: Pablo Echogenic foci: No Total points: 3 ACR TI-RADS category: Mildly suspicious Nodule number: 2 Location: Mid to inferior pole Size: 1.3 x 0.9 x 1.5 cm. Composition: Mixed solid and cystic Echogenicity: Hypoechoic Shape: wider than tall. Margins: Pablo Echogenic foci: No Total points: 3 ACR TI-RADS category: Mildly suspicious Nodule number: 3 Location: Left inferior pole Size: 1.1 x 1.0 x 1.2 cm cm. Composition: Mixed solid and cystic Echogenicity: Hypoechoic Shape: wider than tall. Margins: Pablo Echogenic foci: No Total points: 3 ACR TI-RADS category: Mildly suspicious Nodule number: 4 Location: Left inferior pole Size: 1.1 cm. Composition: Mixed solid and cystic Echogenicity: Hypoechoic Shape: wider than tall. Margins: Pablo Echogenic foci: No Total points: 3 ACR TI-RADS category: Mildly suspicious IMPRESSION: Mildly suspicious thyroid nodules, as above. Recommend follow-up in 1 year. ACR TI-RADS definitions and recommendations: TI-RADS 1 (benign): 0 points. FNA not needed. TI-RADS 2 (not suspicious): 2 points. FNA not needed. TI-RADS 3 (mildly suspicious): 3 points. * FNA if 2.5 cm or larger, follow up if 1.5 cm or larger (at 1, 3, and 5 years). TI-RADS 4 (moderately suspicious): 4-6 points. * FNA if 1.5 cm or larger, follow up if 1 cm or larger (at 1, 2, 3, and 5 years). TI-RADS 5 (highly suspicious): 7 points or more. * FNA if 1 cm or larger, follow up if 0.5 cm or larger (every year for 5 years). Dictated by: Merritt Edwards M.D. on 06/23/2022 at 12:15 Approved by: Merritt Edwards M.D. on 06/23/2022 at 12:18
== END ==
PROVIDERS: Family Provider Family Medicine; PCP Physician Assistant; Referring Provider Physician Assistant; Visit Provider Physician Assistant
DX: E04.2 Nontoxic multinodular goiter (principal)
CPT/HCPCS: 76536

== ENCOUNTER → 2022-11-03 07:59 | Outpatient (CLI) | payer MEDICARE, OTHER, SELFPAY ==
[2017-09-13 17:58] VITALS: BMI 29.8
== END ==
PROVIDERS: Family Provider Family Medicine; PCP Physician Assistant; Referring Provider Internal Medicine Critical Care Medicine; Visit Provider Internal Medicine Critical Care Medicine
DX: J98.6 Disorders of diaphragm (principal); Z87.891 Personal history of nicotine dependence; J98.8 Other specified respiratory disorders
CPT/HCPCS: 94060; 94726; 94729

== ENCOUNTER → 2022-11-03 14:01 | Outpatient (CLI) | payer MEDICARE, OTHER, SELFPAY ==
[2017-09-13 17:58] VITALS: BMI 29.8
--- NOTE | 2022-11-03 14:03 | DI.CT.S_ITS ---
PROCEDURE: CT CHEST ABD PEL W CON INDICATIONS: Diaphram parylysis TECHNIQUE: After the administration of oral and intravenous contrast, axial sections acquired from the supraclavicular neck to the pubic symphysis. Coronal and sagittal reformats were performed. For radiation dose reduction, the following was used: automated exposure control, adjustment of mA and/or kV according to patient size. COMPARISON: [facility] ([facility]), CR, XR CHEST 2V, 01/18/2022, 14:30. [facility] ([facility]), CR, XR CHEST 2V, 08/16/2022, 11:05. FINDINGS: Image quality: Excellent. CHEST: Lower Neck: No enlarged lymph nodes. Thyroid: Heterogeneous left lower pole thyroid nodule, stable. Refer to prior ultrasound report. Axillae: No adenopathy. Chronic right axillary in capsulated calcification adjacent to the subscapularis muscle. Chest Wall: Unremarkable. Lungs and Airways: Central and peripheral airways are normal without bronchial wall thickening or bronchiectasis. Minor ground-glass opacity and atelectasis posteriorly in the right lower lobe at the lung base. Scattered subcentimeter subpleural nodules in the lateral left upper lobe, stable. No suspicious lung nodule or consolidation. Pleura: No pneumothorax or pleural effusions. Heart: Heart size is normal. No pericardial effusion. Thoracic Vessels: The aorta and pulmonary arteries demonstrate normal size. Mediastinum and Татьяна: No enlarged lymph nodes. Esophagus: No wall thickening. No hiatal hernia. ABDOMEN: Liver: Normal attenuation. Several scattered hypodensities of varying sizes the largest with attenuation of a cyst. No enhancing mass. Gallbladder: Normal. Biliary ducts: Nondilated. Pancreas: Normal. Spleen: Normal. Adrenal Glands: No nodules. Kidneys and Ureters: Left medial upper pole renal cyst. Anterior right lower pole cyst. Otherwise normal kidneys and ureters. Stomach and Bowel: Stomach, small bowel loops, and colon are unremarkable. Normal appendix. Several sigmoid colonic diverticula. No acute diverticulitis. Normal to slightly increased quantity of colonic stool. Peritoneum: No abnormal intraperitoneal fluid. No free air. There is less elevation of the right hemidiaphragm compared to the left, compared to the prior study. Ventral Wall: No hernia. Abdominal Nodes: No retroperitoneal or mesenteric adenopathy by size criteria. Vessels: Aorta and inferior vena cava are normal in size. PELVIS: Pelvic Organs: Absent uterus. No suspicious adnexal masses. Bladder: Partially obscured by beam hardening artifact. The visible portion appears normal. Pelvic Nodes: No enlarged lymph nodes. Miscellaneous: No inguinal hernias are seen. Bones: Bilateral hip arthroplasties. Grade 1 degenerative retrolisthesis L1-2. Degenerative disc height loss L5-S1. Severe degeneration in the right glenohumeral joint. IMPRESSION: 1. No acute process. 2. Less elevation of the right hemidiaphragm compared to the left side compared to the prior study. There is persistent associated right costophrenic sulcus atelectasis. 3. Sigmoid colonic diverticulosis. 4. Hepatic and renal cysts. Dictated by: Kathy Trejo M.D. on 11/04/2022 at 9:51 Approved by: Kathy Trejo M.D. on 11/04/2022 at 10:08
[2022-11-03 14:41] LABS: Estimated Glomerular Filt Rate > 60 mL/min (>60)
== END ==
PROVIDERS: Specialist; Family Provider Family Medicine; PCP Physician Assistant; Referring Provider Internal Medicine Critical Care Medicine; Visit Provider Internal Medicine Critical Care Medicine
DX: J98.6 Disorders of diaphragm (principal); R07.9 Chest pain, unspecified; J98.11 Atelectasis; K57.30 Diverticulosis of large intestine without perforation or abscess without bleeding; K76.89 Other specified diseases of liver; N28.1 Cyst of kidney, acquired; Z87.891 Personal history of nicotine dependence; J98.8 Other specified respiratory disorders
CPT/HCPCS: 36415; 71260; 74177; 82565; 94060; 94726; 94729; Q9967

== ENCOUNTER → 2023-05-10 13:28 | Outpatient (CLI) | payer MEDICARE, OTHER, SELFPAY ==
[2017-09-13 17:58] VITALS: BMI 29.8
--- NOTE | 2023-05-10 13:32 | DI.RAD.S_ITS ---
PROCEDURE: XR LUMBAR SPINE MIN 4V INDICATIONS: BACK PAIN TECHNIQUE: 5 views of the lumbar spine acquired, including flexion and extension views. COMPARISON: [facility], RG, CT CHEST/ABD/PEL W/CONTRAST, 05/04/2022, 7:55. FINDINGS: Bones: 5 nonrib-bearing vertebrae are present. Chronic appearing wedge deformity of the L1 vertebral body. Moderate to severe disc height loss at L5-S1. Moderate disc height loss at L1-2, L2-3. Mild disc height loss at remaining levels. Slight leftward curvature. Bilateral total hip arthroplasties. Soft tissues: Overlying bowel gas pattern is normal. No suspicious soft tissue calcifications. Flexion/extension: There is normal range of motion, with preserved normal alignment. IMPRESSION: No acute bony abnormality. Multilevel degenerative disc disease and facet arthrosis, most prominent at L5-S1, L1-2 and L2-3. Dictated by: Merritt Edwards M.D. on 05/10/2023 at 14:33 Approved by: Merritt Edwards M.D. on 05/10/2023 at 14:35
--- NOTE | 2023-05-10 13:32 | DI.RAD.S_ITS ---
PROCEDURE: XR SHOULDER RT MIN 2V INDICATIONS: RIGHT SHOULDER PAIN TECHNIQUE: 3 views of the shoulder were acquired. COMPARISON: None. FINDINGS: Bones: No fractures or dislocations. No suspicious bony lesions. Visualized ribs appear intact. Glenohumeral and acromioclavicular joint space narrowing with associated osteophytosis. Bulky osteophytes about the glenohumeral joint. Soft tissues: No suspicious soft tissue calcifications. IMPRESSION: Marked glenohumeral osteoarthritis. Dictated by: Merritt Edwards M.D. on 05/10/2023 at 14:31 Approved by: Merritt Edwards M.D. on 05/10/2023 at 14:32
== END ==
PROVIDERS: Family Provider Family Medicine; PCP Physician Assistant; Referring Provider Physical Medicine & Rehabilitation; Visit Provider Physical Medicine & Rehabilitation
DX: M19.011 Primary osteoarthritis, right shoulder (principal); M25.511 Pain in right shoulder; M51.16 Intervertebral disc disorders with radiculopathy, lumbar region; M51.17 Intervertebral disc disorders with radiculopathy, lumbosacral region; M47.26 Other spondylosis with radiculopathy, lumbar region; M47.27 Other spondylosis with radiculopathy, lumbosacral region; G89.29 Other chronic pain; G56.80 Other specified mononeuropathies of unspecified upper limb; M75.41 Impingement syndrome of right shoulder; I48.0 Paroxysmal atrial fibrillation; Z92.29 Personal history of other drug therapy
CPT/HCPCS: 72110; 73030; 99214

== ENCOUNTER → 2023-05-17 06:38 | Outpatient (CLI) | payer MEDICARE, OTHER, SELFPAY ==
[2017-09-13 17:58] VITALS: BMI 29.8
--- NOTE | 2023-05-17 06:40 | DI.US.S_ITS ---
PROCEDURE: US THYROID INDICATIONS: F/U NODULES TECHNIQUE: Real-time scanning was performed of the thyroid gland, with image documentation. COMPARISON: [facility], US, US THYROID, 06/23/2022, 11:28. FINDINGS: Right: Thyroid lobe measures 5.5 x 1.3 x 1.5 cm, and is homogeneous in echotexture. Left: Thyroid lobe measures 5.2 x 2.0 x 1.3 cm, and is homogenous in echotexture. Isthmus: 0.2 cm thick. Nodule number: 1 Location: Right inferior Size: 0.8 x 0.5 x 0.6 cm. Composition: Predominantly solid Echogenicity: Hypoechoic Shape: wider than tall. Margins: Smooth Echogenic foci: Non Total points: 4 ACR TI-RADS category: 4 Nodule number: 2 Location: Left mid Size: 0.4 x 1.1 x 1.2 cm. Composition: Predominantly solid Echogenicity: Hypoechoic Shape: wider than tall. Margins: Smooth Echogenic foci: Non Total points: 4 ACR TI-RADS category: 4 Nodule number: 3 Location: Left inferior Size: 1.3 x 0.6 x 1.2 cm Composition: Solid Echogenicity: Hypoechoic Shape: wider than tall. Margins: Ill-defined Echogenic foci: Non Total points: 4 ACR TI-RADS category: 4 Nodule number: 4 Location: Left inferior Size: 1.0 x 0.6 x 0.7 cm. Composition: Cystic Echogenicity: Hypoechoic Shape: wider than tall. Margins: Ill-defined Echogenic foci: None Total points: 2 ACR TI-RADS category: 2 IMPRESSION: Left-sided thyroid nodules. Continue follow-up schedule ACR TI-RADS definitions and recommendations: TI-RADS 1 (benign): 0 points. FNA not needed. TI-RADS 2 (not suspicious): 2 points. FNA not needed. TI-RADS 3 (mildly suspicious): 3 points. * FNA if 2.5 cm or larger, follow up if 1.5 cm or larger (at 1, 3, and 5 years). TI-RADS 4 (moderately suspicious): 4-6 points. * FNA if 1.5 cm or larger, follow up if 1 cm or larger (at 1, 2, 3, and 5 years). TI-RADS 5 (highly suspicious): 7 points or more. * FNA if 1 cm or larger, follow up if 0.5 cm or larger (every year for 5 years). 1. Dictated by: Bello Sorto M.D. on 05/17/2023 at 16:49 Approved by: Bello Sorto M.D. on 05/17/2023 at 17:39
--- NOTE | 2023-05-17 06:40 | DI.US.S_ITS ---
PROCEDURE: US ABDOMEN COMPLETE INDICATIONS: LIVER, RENAL CYSTS ON CT TECHNIQUE: Real-time scanning was performed of the abdominal and retroperitoneal organs, with image documentation. COMPARISON: None. FINDINGS: Liver: Liver is normal in size and homogeneous in echotexture. Simple appearing left hepatic lobe cyst measuring 1.9 centimeter. Gallbladder: Unremarkable. Biliary ducts: Intrahepatic bile ducts are non-dilated. Extrahepatic bile duct caliber measures 6 mm. Normal is 6-7 mm or less in diameter, or 10 mm or less post-cholecystectomy. Pancreas: Visualized portions of the pancreas are sonographically normal. Spleen: Spleen is normal in size and homogeneous in echotexture. Kidneys: Kidneys are normal in size and echotexture. Right kidney measures 10.4 cm long; left kidney measures 10.4 cm long. No hydronephrosis or nephrolithiasis. No solid masses. Simple appearing bilateral renal cysts. Aorta: Visualized aorta is normal in caliber at less than 3 cm. Iliacs: Proximal common iliac arteries are normal in caliber at less than 2.5 cm. IVC: Intrahepatic inferior vena cava is patent. Miscellaneous: No free abdominal fluid. IMPRESSION: Simple hepatic and renal cysts. Dictated by: Merritt Edwards M.D. on 05/17/2023 at 9:21 Approved by: Merritt Edwards M.D. on 05/17/2023 at 9:22
--- NOTE | 2023-05-17 06:40 | DI.MRI.S_ITS ---
PROCEDURE: MR LUMBAR SPINE WO CON INDICATIONS: lumbar radiculopathy TECHNIQUE: Noncontrast sagittal T1 spin echo and T2 fast echo, sagittal STIR, and T2 fast spin echo through the lumbar spine. In cases with scoliosis, additional coronal T2 fast spin echo may be performed. COMPARISON: [facility], CR, XR LUMBAR SPINE MIN 4V, 05/10/2023, 13:31. FINDINGS: Image quality: Excellent. Alignment and Curvature: Mild retrolisthesis of L1 on L2 and L5 on S1. Bone Marrow: There is a acute or subacute compression fracture of L1 with approximately 30% midportion vertebral body height loss. No significant bony retropulsion. Spinal Cord: Conus medullaris terminates at the L1-L2 level. Visualized cord demonstrates normal signal and size. Paraspinous Soft Tissues: No paravertebral masses. T12-L1: Disc bulge. Facet hypertrophy. No canal stenosis or foraminal stenosis. L1-L2: Chronic disc height loss. Retrolisthesis of L1 on L2. Shallow mild inferior disc extrusion. Facet hypertrophy, right greater than left. Mild canal stenosis. Moderate to severe right foraminal narrowing with a degree of right foraminal L1 nerve root impingement. L2-L3: Disc bulge. Facet and ligament hypertrophy. Mypr-uf-kwlqdsub canal stenosis. No significant foraminal stenosis. L3-L4: Disc bulge. Facet hypertrophy. Mild canal stenosis. No significant foraminal stenosis. L4-L5: Disc bulge. Prominent facet and ligament hypertrophy. Moderate canal stenosis. Mild bilateral foraminal stenosis. L5-S1: Disc bulge with mild superimposed peripherally calcified left paracentral disc protrusion. Facet hypertrophy. There is impingement on the left S1 nerve root in the left lateral recess. There is mild central canal stenosis. There is naxx-xm-znfaolki bilateral foraminal stenosis. IMPRESSION: 1. Acute or subacute superior endplate compression fracture of L1 with approximately 30% midportion vertebral body height loss. 2. Multilevel underlying facet arthropathy. 3. Canal stenosis is mild at L1-L2, sjpz-ax-lxxxpaql at L2-L3, mild at L3-L4, moderate at L4-L5, and mild at L5-S1. 4. There is impingement on the left S1 nerve root in the left lateral recess at L5-S1. Dictated by: Russ Heredia M.D. on 05/17/2023 at 9:49 Approved by: Russ Heredia M.D. on 05/17/2023 at 9:56
== END ==
PROVIDERS: Family Provider Family Medicine; PCP Physician Assistant; Referring Provider Physician Assistant; Visit Provider Physician Assistant
DX: M47.26 Other spondylosis with radiculopathy, lumbar region (principal); M47.27 Other spondylosis with radiculopathy, lumbosacral region; M48.061 Spinal stenosis, lumbar region without neurogenic claudication; M48.07 Spinal stenosis, lumbosacral region; M48.56XA Collapsed vertebra, not elsewhere classified, lumbar region, initial encounter for fracture; E04.2 Nontoxic multinodular goiter; N28.1 Cyst of kidney, acquired; K76.89 Other specified diseases of liver
CPT/HCPCS: 72148; 76536; 76700

== ENCOUNTER → 2023-05-23 09:32 | Outpatient (CLI) | payer MEDICARE, OTHER, SELFPAY ==
[2023-05-17 10:14] VITALS: BMI 29.8
[2023-05-23 19:02] LABS: Add Manual Diff / Slide Review NO; Basophils Absolute Auto 0 /uL (0-100); Basophils Percent Auto 0.6 % (0-2); Eosinophils Absolute Auto 200 /uL (0-450); Eosinophils Percent Auto 3.5 % (2-4); Hematocrit 43.9 % (36-46); Hemoglobin 14.9 g/dL (12.0-16.0); Lymphocytes Absolute Auto 2400 /uL (1100-4500); Lymphocytes Percent Auto 36.6 % (25-40); Mean Corpuscular HGB Conc 33.9 % (30-36); Mean Corpuscular Hemoglobin 32.8 PG (26-34); Mean Corpuscular Volume 96.9 fL (80-100); Monocytes Absolute Auto 500 /uL (0-900); Monocytes Percent Auto 8.4 % (3-14); Neutrophils Absolute Auto 3300 /uL (1500-7000); Neutrophils Percent Auto 50.9 % (50-75); Platelet Count 210 X10^3/uL (150-400); Red Blood Cell Count 4.53 X10^6/uL (4.0-5.2); Red Cell Distribution Width 13.9 % (11.6-14.8); White Blood Cell Count 6.4 X10^3/uL (4.5-11.0)
[2023-05-23 19:33] LABS: TSH w/ Reflex to FT4 1.89 uIU/mL (0.47-4.68)
[2023-05-23 20:04] LABS: BUN Creatinine Ratio 20.3 (6-22); Blood Urea Nitrogen 14 mg/dL (7-17); Calcium 9.5 mg/dL (8.4-10.2); Carbon Dioxide 34 mmol/L (22-32); Chloride 102 mmol/L (98-107); Estimated Glomerular Filt Rate > 60 mL/min (>60); Glucose 110 mg/dL (80-110); HEMOLYSIS 23 (0-50); Potassium 3.9 mmol/L (3.4-5.1); Sodium 138 mmol/L (137-145)
[2023-05-23 20:05] LABS: Alanine Aminotransferase 53 IU/L (<35); Albumin 4.4 g/dL (3.5-5.0); Albumin Globulin Ratio 1.4 (1.0-2.8); Alkaline Phosphatase 96 U/L (38-126); Aspartate Aminotransferase 106 IU/L (14-36); Bilirubin Total 0.9 mg/dL (0.2-1.3); Cholesterol 204 mg/dL (140-199); Globulin 3.2 g/dL (1.7-4.1); HDL Cholesterol 44 mg/dL (40-60); LDL Cholesterol Calculated 102 mg/dL (<100); Total Protein 7.6 g/dL (6.3-8.2); Triglycerides 291 mg/dL (35-150)
== END ==
PROVIDERS: Family Provider Family Medicine; PCP Physician Assistant; Visit Provider Physician Assistant
DX: E04.1 Nontoxic single thyroid nodule (principal); Z79.899 Other long term (current) drug therapy; E78.00 Pure hypercholesterolemia, unspecified; E78.2 Mixed hyperlipidemia; I10 Essential (primary) hypertension
CPT/HCPCS: 80053; 80061; 84443; 85025

== ENCOUNTER → 2023-08-16 10:58 | Outpatient (CLI) | payer MEDICARE, OTHER, SELFPAY ==
[2023-05-17 10:14] VITALS: BMI 29.8
--- NOTE | 2023-08-16 10:59 | DI.RAD.S_ITS ---
PROCEDURE: XR LUMBAR SPINE MIN 4V INDICATIONS: BACK PAIN/COMPRESSION FX L1 COMPARISON TECHNIQUE: 5 views of the lumbar spine were acquired, including bilateral oblique views. COMPARISON: [facility], , XR LUMBAR SPINE MIN 4V, 05/10/2023, 13:31. FINDINGS: Bones: Mild convex left thoracolumbar scoliosis present. Generalized decreased osseous mineralization noted. L1 compression fracture with 30% anterior height loss remains unchanged from the prior exam. Sclerotic facet joints noted throughout the exam particularly in the lower lumbar spine. Degenerative retrolisthesis L1-2 Soft tissues: Atherosclerotic calcification in the abdominal aorta noted without evidence of aneurysm. Oblique images: No pars defects. IMPRESSION: Stable osteopenic L1 compression fracture Degenerative arthropathy Approved by: Bello Sorto M.D. on 08/16/2023 at 10:57
== END ==
PROVIDERS: Family Provider Family Medicine; PCP Physician Assistant; Referring Provider Physical Medicine & Rehabilitation; Visit Provider Physical Medicine & Rehabilitation
DX: S32.010A Wedge compression fracture of first lumbar vertebra, initial encounter for closed fracture (principal); M47.816 Spondylosis without myelopathy or radiculopathy, lumbar region
CPT/HCPCS: 72110

== ENCOUNTER 2023-09-14 12:23 | Outpatient (CLI) | payer MEDICARE, OTHER, SELFPAY ==
[2023-05-17 10:14] VITALS: BMI 29.8
[2023-09-14] VITALS (8 sets, daily range): BP systolic 164–194; BP diastolic 75–86; PULSE 57–63; RESP 12–20; O2SAT 97–100
--- NOTE | 2023-09-14 13:00 | DI.RAD.S_ITS ---
PROCEDURE: PAIN L/S FACET INJ/BLK 1ST RADHA INDICATIONS: Bilateral L4-L5 and S1 medial branch block LA COMPARISON: None. FINDINGS: Fluoroscopic spot filming was performed to verify placement of spinal needles at the L4-5, S1 level(s), as labeled on the films. Appropriate location(s) of the needle tip(s) was confirmed by injection of iodinated contrast. IMPRESSION: Fluoroscopic guidance utilized for a medial branch block. Dictated by: Merritt Edwards M.D. on 09/14/2023 at 15:03 Approved by: Merritt Edwards M.D. on 09/14/2023 at 15:05
[2023-09-14] MEDS: MIDAZOLAM 2 MG/2 ML VIAL IV (13:40)
[2023-09-14] MEDS: LIDOCAINE 1% 20 ML 5 ML INJ (13:42)
[2023-09-14] MEDS: BUPIVACAINE 0.5% (PF) 10 ML VIAL 5 ML INJ (13:43)
[2023-09-14] MEDS: iopamidoL 15 ML VIAL 3 ML INJ (13:43)
--- NOTE | 2023-09-14 13:54 | P.PCN_ITS ---
Date/Time/Diagnoses Date of procedure: 09/14/23 Time of procedure: 13:55 Pre-procedure diagnosis: 1. FACET ARTHROPATHY Post-procedure diagnosis: same Procedure Notes Procedure: 1. BILATERAL- L4, L5 and S1 DIAGNOSTIC MB BLOCKS with LA Anesthetic Indications: Adri is referred by PAC Tripp for treatment of Bilateral Axial LBP. Physician: Yves Villatoro Total Fluoroscopy time (seconds): 11 Total sedation minutes: 10 Complications: none Procedure in detail & Post-procedure care: DESCRIPTION OF PROCEDURE Fluoroscopically guided, contrast-controlled bilateral L4, L5 and S1 medial branch blocks with 0.5cc of 0.5% Marcaine. Following review of allergy and review of potential side effects and complications, including, but not necessarily limited to, infection, allergic reaction, local tissue breakdown, nerve injury, paralysis, stroke and possible , the patient indicated that the patient understood and agreed to proceed. An informed consent document was signed by the patient, witnessed by a nurse, and placed in the patient's chart. After review of previous anaesthesic history and IV conscious sedation the patient was deemed safe to proceed with today's procedure with IV conscious sedation as ASA class II designation. Safety time-out was performed to confirm patient ID, procedure to be performed and site of procedure. IV sedation was accomplished with a combination of 2mg of Versed was administered by the RN after DO order, titrated to patient comfort during the course of the procedure while the patient remained responsive to all verbal commands In the prone position, following sterile prep and drape of the lumbar region, the right L4, L5 and S1 anatomical location of the medial branch of the dorsal ramus was identified fluoroscopically. Subsequently an anesthetic skin wheal using 1% lidocaine solution was initiated at each of the anatomical spots. Subsequently then a 22-gauge 3.5-inch spinal needle was atraumatically introduced and advanced under fluoroscopic guidance at each of the corresponding sites at the right L4, L5 and S1 MB. After negative aspiration, 0.2cc of Isovue 200 was injected, confirming placement without vascular or intrathecal uptake. Subsequently then 0.5cc of 0.5% Marcaine solution was injected at each of the corresponding sites at the right L4, L5 and S1 medial branch locations. The identical procedure was replicated on the left. The patient tolerated the procedure well without signs or symptoms of complications prior to transfer to the recovery area continued monitoring without incident. Post-procedure, the patient was monitored initiating provocative activities to measure the amount of relief from block of the facetogenic pain. The patient reported a VAS of 7 prior to the procedure and a post-procedure VAS of 1. It has been a pleasure to assist in the diagnostic and therapeutic care of your patient. POST OP INSTRUCTIONS The patient was provided with a Pain Log to complete over the next several hours and subsequent days prior to the patient's follow up with the ordering physician. If the patient has legal services professional relief to the solution applied, then they may be a candidate for medial branch rhizotomy. The patient is aware, was provided, once again, with a Pain Log and will follow up with the referring physician for review and clinical correlation
== END 2023-09-14 14:14 | disposition home or self-care (01) ==
PROVIDERS: Family Provider Family Medicine; PCP Physician Assistant; Referring Provider Physical Medicine & Rehabilitation; Visit Provider Physical Medicine & Rehabilitation
DX: M47.816 Spondylosis without myelopathy or radiculopathy, lumbar region (principal); M47.817 Spondylosis without myelopathy or radiculopathy, lumbosacral region
CPT/HCPCS: 64493; 64494; 99152; J2250

== ENCOUNTER → 2023-09-20 09:01 | Outpatient (CLI) | payer MEDICARE, OTHER, SELFPAY ==
[2023-05-17 10:14] VITALS: BMI 29.8
[2023-09-20 19:42] LABS: Alanine Aminotransferase 28 IU/L (<35); Albumin Globulin Ratio 1.6 (1.0-2.8); Alkaline Phosphatase 87 U/L (38-126); Aspartate Aminotransferase 34 IU/L (14-36); BUN Creatinine Ratio 21.2 (6-22); Bilirubin Total 0.7 mg/dL (0.2-1.3); Blood Urea Nitrogen 18 mg/dL (7-17); Calcium 9.4 mg/dL (8.4-10.2); Carbon Dioxide 30 mmol/L (22-32); Chloride 104 mmol/L (98-107); Cholesterol 174 mg/dL (140-199); Estimated Glomerular Filt Rate > 60 mL/min (>60); Globulin 2.5 g/dL (1.7-4.1); Glucose 109 mg/dL (80-110); HDL Cholesterol 50 mg/dL (40-60); HEMOLYSIS 16 (0-50); LDL Cholesterol Calculated 79 mg/dL (<100); Potassium 4.1 mmol/L (3.4-5.1); Sodium 138 mmol/L (137-145); Total Protein 6.5 g/dL (6.3-8.2); Triglycerides 223 mg/dL (35-150)
== END ==
PROVIDERS: Family Provider Family Medicine; PCP Physician Assistant; Visit Provider Physician Assistant
DX: R74.8 Abnormal levels of other serum enzymes (principal); E78.5 Hyperlipidemia, unspecified; Z79.899 Other long term (current) drug therapy
CPT/HCPCS: 80053; 80061

== ENCOUNTER 2023-10-24 12:32 | Outpatient (CLI) | payer MEDICARE, OTHER, SELFPAY ==
[2023-05-17 10:14] VITALS: BMI 29.8
[2023-10-24] VITALS (9 sets, daily range): BP systolic 131–166; BP diastolic 61–72; PULSE 57–67; RESP 14–20; TEMP 36.2; O2SAT 96–99
--- NOTE | 2023-10-24 13:00 | DI.RAD.S_ITS ---
PROCEDURE: PAIN L/S FACET INJ/BLK 1ST RADHA INDICATIONS: SPONDYLOSIS COMPARISON: [facility], , PAIN L/S FACET INJ/BLK 1ST RADHA, 09/14/2023, 13:40. FINDINGS: Fluoroscopic spot filming was performed to verify placement of spinal needles at the L4, L5 and S1 level(s), as labeled on the films. Contrast was injected at these levels. IMPRESSION: Spinal needles at the L4, L5 and S1 levels. Please see procedure report for details. Dictated by: Mai Rutherford M.D. on 10/24/2023 at 17:05 Approved by: Mai Rutherford M.D. on 10/24/2023 at 17:06
[2023-10-24] MEDS: MIDAZOLAM 2 MG/2 ML VIAL IV (13:18)
[2023-10-24] MEDS: iopamidoL 15 ML VIAL 3 ML INJ (13:19)
[2023-10-24] MEDS: LIDOCAINE 2% INJ MDV 20ML 5 ML INJ (13:19)
[2023-10-24] MEDS: LIDOCAINE 1% 20 ML 5 ML INJ (13:20)
--- NOTE | 2023-10-24 13:43 | P.PCN_ITS ---
Date/Time/Diagnoses Date of procedure: 10/24/23 Time of procedure: 13:43 Pre-procedure diagnosis: 1. FACET ARTHROPATHY Post-procedure diagnosis: same Procedure Notes Procedure: 1. BILATERAL- L4, L5 and S1 DIAGNOSTIC MB BLOCKS with SA Anesthetic Indications: Adri is referred by PAC Tripp for treatment of Bilateral Axial LBP. Physician: Yves Villatoro Total Fluoroscopy time (seconds): 15 Total sedation minutes: 19 Complications: none Procedure in detail & Post-procedure care: DESCRIPTION OF PROCEDURE Fluoroscopically guided, contrast-controlled bilateral L4, L5 and S1 medial branch blocks with 0.5cc of 2% Lidocaine. Following review of allergy and review of potential side effects and complications, including, but not necessarily limited to, infection, allergic reaction, local tissue breakdown, nerve injury, paralysis, stroke and possible , the patient indicated that the patient understood and agreed to proceed. An informed consent document was signed by the patient, witnessed by a nurse, and placed in the patient's chart. After review of previous anaesthesic history and IV conscious sedation the patient was deemed safe to proceed with today's procedure with IV conscious sedation as ASA class II designation. Safety time-out was performed to confirm patient ID, procedure to be performed and site of procedure. IV sedation was accomplished with a combination of 2mg of Versed was administered by the RN after DO order, titrated to patient comfort during the course of the procedure while the patient remained responsive to all verbal commands In the prone position, following sterile prep and drape of the lumbar region, the right L4, L5 and S1 anatomical location of the medial branch of the dorsal ramus was identified fluoroscopically. Subsequently an anesthetic skin wheal using 1% lidocaine solution was initiated at each of the anatomical spots. Subsequently then a 22-gauge 3.5-inch spinal needle was atraumatically introduced and advanced under fluoroscopic guidance at each of the corresponding sites at the right L4, L5 and S1 MB. After negative aspiration, 0.2cc of Isovue 200 was injected, confirming placement without vascular or intrathecal uptake. Subsequently then 0.5cc of 2% Lidocaine solution was injected at each of the corresponding sites at the right L4, L5 and S1 medial branch locations. The identical procedure was replicated on the left. The patient tolerated the procedure well without signs or symptoms of complications prior to transfer to the recovery area continued monitoring without incident. Post-procedure, the patient was monitored initiating provocative activities to measure the amount of relief from block of the facetogenic pain. The patient reported a VAS of 7 prior to the procedure and a post-procedure VAS of 1. It has been a pleasure to assist in the diagnostic and therapeutic care of your patient. POST OP INSTRUCTIONS The patient was provided with a Pain Log to complete over the next several hours and subsequent days prior to the patient's follow up with the ordering physician. If the patient has junior php developer relief to the solution applied, then they may be a candidate for medial branch rhizotomy. The patient is aware, was provided, once again, with a Pain Log and will follow up with the referring physician for review and clinical correlation
== END 2023-10-24 14:00 | disposition home or self-care (01) ==
PROVIDERS: Family Provider Family Medicine; PCP Physician Assistant; Referring Provider Physical Medicine & Rehabilitation; Visit Provider Physical Medicine & Rehabilitation
DX: M47.816 Spondylosis without myelopathy or radiculopathy, lumbar region (principal); M47.817 Spondylosis without myelopathy or radiculopathy, lumbosacral region
CPT/HCPCS: 64493; 64494; 99152; J2250

== ENCOUNTER → 2024-04-01 11:01 | Outpatient (CLI) | payer MEDICARE, OTHER, SELFPAY ==
[2024-03-19 11:02] VITALS: BMI 29.8
[2024-04-01 19:56] LABS: Folate > 20.0 ng/mL (2.76-20.0); Vitamin B12 813 pg/mL (239-931)
== END ==
PROVIDERS: Family Provider Family Medicine; PCP Family Medicine; Visit Provider Family Medicine
DX: R41.3 Other amnesia (principal)
CPT/HCPCS: 82607; 82746

== ENCOUNTER 2024-04-09 10:34 | Outpatient (CLI) | payer MEDICARE, OTHER, SELFPAY ==
[2024-03-19 11:02] VITALS: BMI 29.8
[2024-04-09] VITALS (13 sets, daily range): BP systolic 142–179; BP diastolic 76–97; PULSE 53–57; RESP 14–19; TEMP 36.6; O2SAT 97–100
--- NOTE | 2024-04-09 10:35 | DI.RAD.S_ITS ---
PROCEDURE: PAIN L/S MED/LAT N RFA BILAT INDICATIONS: Bilateral L4-L5 and S1 medial branch RFA COMPARISON: None. FINDINGS/IMPRESSION: Fluoroscopic spot filming was performed to verify placement of spinal needles at the bilateral L4, L5, and S1 level(s), as labeled on the films. Appropriate location(s) of the needle tip(s) was confirmed by injection of iodinated contrast. Dictated by: Kathy Trejo M.D. on 04/09/2024 at 18:29 Approved by: Kathy Trejo M.D. on 04/09/2024 at 18:29
[2024-04-09] MEDS: MIDAZOLAM 2 MG/2 ML VIAL IV (12:07)
[2024-04-09] MEDS: LIDOCAINE 1% 20 ML 5 ML INJ (12:11)
[2024-04-09] MEDS: BUPIVACAINE 0.5% (PF) 10 ML VIAL 5 ML INJ (12:11)
[2024-04-09] MEDS: MIDAZOLAM 2 MG/2 ML VIAL 1 MG IV (12:29)
--- NOTE | 2024-04-09 13:27 | P.PCN_ITS ---
Date/Time/Diagnoses Date of procedure: 04/09/24 Time of procedure: 13:28 Pre-procedure diagnosis: 1. RECALCITRANT FACET ARTHROPATHY Post-procedure diagnosis: same Procedure Notes Procedure: 1. BILATERAL L4 AND L5 MEDIAL BRANCH RADIOFREQUENCY NEUROTOMY AND S1 DORSAL RAMUS BRANCH RADIOFREQUENCY NEUROTOMY Indications: Adri is referred by Dr. Prince for treatment of facet arthropathy. Physician: Yves Villatoro Total Fluoroscopy time (seconds): 22 Total sedation minutes: 37 Complications: none Procedure in detail & Post-procedure care: DESCRIPTION OF PROCEDURE Bilateral L4 and L5 medial branch radiofrequency neurotomy and bilateral S1 dorsal ramus radiofrequency neurotomy under fluoroscopy with conscious sedation. The patient is well known to this clinic having undergone previous facet inj ections with good but temporary relief. The patient has experienced appropriate, concordant relief with previous facet and median branch blocks but the patient's pain has been recalcitrant to further conservative measures. Therefore, based upon the patient's relief and persistent symptoms, the patient is considered an appropriate candidate for facet rhizotomy. All of the patient's questions regarding the risks versus benefits of the procedure, including, but not limited to, bleeding, infection, temporary as well as lasting nerve injury, paralysis, stroke, and , as well treatment alternatives were answered to satisfaction. After obtaining informed consent, denial of pertinent drug allergies, as well as being made aware of the potential risks of bleeding, infection, spinal cord tr auma, paralysis, temporary and permanent nerve damage, seizure, stroke, and possible , the patient was brought to the fluoroscopy suite and positioned prone on the fluoroscopy table. The lumbar region was prepped in usual sterile fashion and covered with a fenestrated drape in the usual sterile fashion. Appropriate monitors applied including pulse oximeter, pulse, and blood pressure for regular monitoring throughout the procedure. After review of previous anaesthesic history and IV conscious sedation the patient was deemed safe to proceed with today's procedure with IV conscious sed ation as ASA class II designation. Safety time-out was performed to confirm patient ID, procedure to be performed and site of procedure. IV sedation was accomplished with a combination of 3mg of Versed administered by the RN after DO order, titrated to patient comfort during the course of the procedure while the patient remained responsive to all verbal commands. After local infiltration using 1% lidocaine, under fluoroscopic guidance, a 10- cm RF insulated needle with a 10-mm active tip was positioned parallel to the junction of the right sacral ala and the superior articulating process where the S1 dorsal ramus resides. Needle placement was confirmed with motor stimulation of .5v on the right which produced local stimulation without radicular component. The stimulation was then increased to 2v with, once again, only local multifidus stimulation without radicular component. The needle was then removed and the identical procedure was performed along the length of the right L5 medial branch with motor stimulation at .7v on the right. The identical procedure was once again performed along the length of the right L4 medial branch with motor stimulation of .5v on the right. The medial branches were then anesthetised with 0.5% Marcaine. This was then followed by two discreet lesions performed at 80 degrees Celsius for 90 seconds each. The identical procedure was repeated on the left. The patient tolerated the procedure well without signs or symptoms of complications prior to transfer to the recovery area continued monitoring without incident. The patient was then transferred to the recovery area where they were observed for an appropriate period of time after the injection. The patient reported a VAS score of 8 prior to the procedure and a post-procedure VAS of 1. POST OP INSTRUCTIONS The patient was provided a Pain Log to continue to record the patient's response to the target-specific procedure prior to the patient's follow-up visit with the referring physician. Additionally, specific post-injection care instructions and a contact number to our office were provided if concerns arise regarding possible complications associated with the procedure are suspected.
== END 2024-04-09 13:10 | disposition home or self-care (01) ==
LOC: RAD 10:35
PROVIDERS: Family Provider Family Medicine; PCP Family Medicine; Referring Provider Physical Medicine & Rehabilitation; Visit Provider Physical Medicine & Rehabilitation
DX: M47.816 Spondylosis without myelopathy or radiculopathy, lumbar region (principal); M47.817 Spondylosis without myelopathy or radiculopathy, lumbosacral region
CPT/HCPCS: 64635; 64636; 99152; 99153; J2250

== ENCOUNTER → 2024-04-10 14:39 | Outpatient (CLI) | payer MEDICARE, OTHER, SELFPAY ==
[2024-03-19 11:02] VITALS: BMI 29.8
[2024-04-10 19:11] LABS: Add Manual Diff / Slide Review NO; Basophils Absolute Auto 0 /uL (0-100); Basophils Percent Auto 0.4 % (0-2); Eosinophils Absolute Auto 200 /uL (0-450); Eosinophils Percent Auto 1.8 % (2-4); Hematocrit 44.3 % (36-46); Hemoglobin 15.2 g/dL (12.0-16.0); Lymphocytes Absolute Auto 3200 /uL (1100-4500); Lymphocytes Percent Auto 37.6 % (25-40); Mean Corpuscular HGB Conc 34.2 % (30-36); Mean Corpuscular Hemoglobin 32.9 PG (26-34); Mean Corpuscular Volume 96.3 fL (80-100); Monocytes Absolute Auto 600 /uL (0-900); Monocytes Percent Auto 6.4 % (3-14); Neutrophils Absolute Auto 4600 /uL (1500-7000); Neutrophils Percent Auto 53.8 % (50-75); Platelet Count 277 X10^3/uL (150-400); Red Cell Distribution Width 13.3 % (11.6-14.8); White Blood Cell Count 8.6 X10^3/uL (4.5-11.0)
[2024-04-10 19:23] LABS: Alanine Aminotransferase 35 IU/L (<35); Albumin 4.4 g/dL (3.5-5.0); Albumin Globulin Ratio 1.4 (1.0-2.8); Alkaline Phosphatase 87 U/L (38-126); Aspartate Aminotransferase 88 IU/L (14-36); BUN Creatinine Ratio 16.3 (6-22); Bilirubin Total 0.8 mg/dL (0.2-1.3); Blood Urea Nitrogen 14 mg/dL (7-17); Calcium 9.9 mg/dL (8.4-10.2); Carbon Dioxide 32 mmol/L (22-32); Chloride 100 mmol/L (98-107); Estimated Glomerular Filt Rate > 60 mL/min (>60); Globulin 3.2 g/dL (1.7-4.1); Glucose 105 mg/dL (80-110); HEMOLYSIS 50 (0-50); Potassium 3.7 mmol/L (3.4-5.1); Sodium 136 mmol/L (137-145); Total Protein 7.6 g/dL (6.3-8.2)
== END ==
PROVIDERS: Family Provider Family Medicine; PCP Family Medicine; Visit Provider Internal Medicine Cardiovascular Disease
DX: I48.0 Paroxysmal atrial fibrillation (principal)
CPT/HCPCS: 80053; 85025

== ENCOUNTER 2024-05-14 10:46 | Outpatient (CLI) | payer MEDICARE, OTHER, SELFPAY ==
[2024-05-08 11:18] VITALS: BMI 29.8
[2024-05-14] VITALS (9 sets, daily range): BP systolic 147–165; BP diastolic 70–79; PULSE 52–59; RESP 16–18; TEMP 36.4; O2SAT 9–99
--- NOTE | 2024-05-14 10:47 | DI.RAD.S_ITS ---
PROCEDURE: PAIN L INTERLAMINAR/CAUDAL INJ INDICATIONS: para left L5/S1 TL MARCOS COMPARISON: None. FINDINGS/IMPRESSION: Fluoroscopic spot filming was performed to verify placement of spinal needles at the left L5-S1 level(s), as labeled on the films. Appropriate location(s) of the needle tip(s) was confirmed by injection of iodinated contrast. Dictated by: Merritt Edwards M.D. on 05/14/2024 at 17:14 Approved by: Merritt Edwards M.D. on 05/14/2024 at 17:15
[2024-05-14] MEDS: MIDAZOLAM 2 MG/2 ML VIAL 1 MG IV (11:37)
[2024-05-14] MEDS: BUPIVACAINE 0.25% (PF) VIAL 2 ML INJ (11:40)
[2024-05-14] MEDS: iopamidoL 15 ML VIAL 3 ML INJ (11:41)
[2024-05-14] MEDS: BETAMETHASONE 30 MG/5 ML MDV 12 MG INJ (11:41)
[2024-05-14] MEDS: DEXAMETHASONE 10 MG/ML VIAL INJ (11:41)
--- NOTE | 2024-05-14 11:52 | PM.PROC.IR.1 ---
Date/Time/Diagnoses Date of procedure: 05/14/24 Time of procedure: 11:52 Pre-procedure diagnosis: 1. HNP WITH RADICULAR FEATURES, 2. MULTILEVEL CENTRAL STENOSIS, Post-procedure diagnosis: same Procedure Notes Procedure: 1. FLUOROSCOPICALLY GUIDED CONTRAST CONTROLLED INTERLAMINAR EPIDURAL STEROID INJECTION - L5/S1 Indications: Adri is referred by Dr. Prince for treatment of Bilateral Foraminal Stenosis L>R LE symptoms. Physician: Yves Villatoro Total Fluoroscopy time (seconds): 8 Total sedation minutes: 11 Complications: none Procedure in detail & Post-procedure care: FINDINGS Multilevel Central Spinal Stenosis with Nerve Root Compression DESCRIPTION OF PROCEDURE Fluoroscopically guided, contrast-controlled L5/S1 translaminar epidural steroid injection. Following review of allergy and review of potential side effects and complications, including, but not necessarily limited to, infection, allergic reaction, local tissue breakdown, temporary as well as permanent nerve injury, paralysis, stroke and possible , the patient indicated that the patient understood and agreed to proceed. An informed consent document was signed by the patient, witnessed by a nurse, and placed in the patient's chart. Additionally, other treatment options including modalities, medications, and physical therapy were reviewed with the patient. After review of previous anaesthesic history and IV conscious sedation the patient was deemed safe to proceed with today?s procedure with IV conscious sedation as ASA class II designation. Safety time-out was performed to confirm patient ID, procedure to be performed and site of procedure. IV sedation was accomplished with a combination of 1mg of Versed administered by the RN after DO order, titrated to patient comfort during the course of the procedure while the patient remained responsive to all verbal commands. In the prone position, following sterile prep and drape of the lumbar region, the L5/S1 translaminar space was identified fluoroscopically. The skin was anesthetized via a 25-gauge, 1.5-inch needle with 1% lidocaine solution. At this point, a 22-gauge short bevel spinal needle was atraumatically introduced and advanced under fluoroscopic guidance into the region of the L5/S1 translaminar space. Depth was confirmed on lateral view. Radiological data, including multiple fluoroscopic views of the lumbar spine, reveal a spinal needle at the L5/S1 translaminar space. Lateral views then show placement of the needle in the epidural space. Subsequent views show contrast material flowing superiorly and inferiorly in the epidural space. No vascular or intrathecal uptake is observed. At this point, using loss of resistance technique with saline and air, the epidural space was entered. This was confirmed following negative aspiration with injection of approximately 1.5cc of Isovue 200, showing excellent epidural flow without vascular or intrathecal uptake. At this point, 1 cc of 1% lidocaine solution combined with 2cc or 10mg of dexamethasone and 6mg of betamethasone was injected without incident. The patent tolerated the procedure without signs of symptoms of complications prior to transfer to the recovery area for further monitoring. The patient was then transferred to the recovery area where they were observed for an appropriate period of time after the injection. The patient reported a VAS score of 6 prior to the procedure and a post-procedure VAS of 0. POST OP INSTRUCTIONS The patient was provided a Pain Log to continue to record their response to the target-specific procedure prior to follow-up visit with their referring physician. Additionally, specific post-injection care instructions and a contact number to our office were provided if concerns arise regarding possible complications associated with the procedure are suspected.
== END 2024-05-14 12:14 | disposition home or self-care (01) ==
LOC: RAD 10:46
PROVIDERS: Family Provider Family Medicine; PCP Family Medicine; Referring Provider Physical Medicine & Rehabilitation; Visit Provider Physical Medicine & Rehabilitation
DX: M51.17 Intervertebral disc disorders with radiculopathy, lumbosacral region (principal); M48.07 Spinal stenosis, lumbosacral region
CPT/HCPCS: 62323; 99152; J0702; J1100; J2250; J3490

== ENCOUNTER → 2024-05-14 15:44 | Outpatient (CLI) | payer MEDICARE, OTHER, SELFPAY ==
[2024-05-08 11:18] VITALS: BMI 29.8
--- NOTE | 2024-05-14 15:45 | DI.US.S_ITS ---
PROCEDURE: US THYROID INDICATIONS: Monitoring thyroid nodules TI-RADS 4 TECHNIQUE: Real-time scanning was performed of the thyroid gland, with image documentation. COMPARISON: [facility], US, US THYROID, 05/17/2023, 6:57. FINDINGS: Thyroid: Right lobe measures 5.5 x 1.5 x 1.3 cm. Left lobe measures 5.2 x 1.3 x 2.0 cm. Isthmus is 2.4 cm thick. Echotexture is homogeneous. Nodule number: 1 Location: Left inferior Size: 1.3 x 1.7 x 1.3 cm, previously 1.4 x 1.2 x 1.1 cm. Composition: Predominantly solid Echogenicity: Hypoechoic Shape: wider than tall. Margins: Smooth Echogenic foci: Punctate Total points: 6 ACR TI-RADS category: 4 Nodule number: 2 Location: Left inferior Size: 1.5 x 1.4 x 1.3 cm overall with cystic component 0.8 x 0.6 cm, previously cystic component 1.0 x 0.7 x 0.6 cm. Composition: Predominantly cystic Echogenicity: Hypoechoic Shape: wider than tall. Margins: Smooth Echogenic foci: None Total points: 3 ACR TI-RADS category: 3 IMPRESSION: Stable category 4 and category 3 nodule. Continued annual follow-up 1. ACR TI-RADS definitions and recommendations: TI-RADS 1 (benign): 0 points. FNA not needed. TI-RADS 2 (not suspicious): 2 points. FNA not needed. TI-RADS 3: 3 points. * FNA if 2.5 cm or larger, follow up if 1.5 cm or larger (at 1, 3, and 5 years). TI-RADS 4: 4-6 points. * FNA if 1.5 cm or larger, follow up if 1 cm or larger (at 1, 2, 3, and 5 years). TI-RADS 5: 7 points or more. * FNA if 1 cm or larger, follow up if 0.5 cm or larger (every year for 5 years). Dictated by: Bello Sorto M.D. on 05/15/2024 at 17:22 Approved by: Bello Sorto M.D. on 05/15/2024 at 17:32
== END ==
PROVIDERS: Family Provider Family Medicine; PCP Family Medicine; Referring Provider Family Medicine; Visit Provider Family Medicine
DX: M51.17 Intervertebral disc disorders with radiculopathy, lumbosacral region (principal); M48.07 Spinal stenosis, lumbosacral region; E04.2 Nontoxic multinodular goiter
CPT/HCPCS: 62323; 76536; 99152; J0702; J1100; J2250; J3490

== ENCOUNTER 2024-09-24 14:59 | Outpatient (CLI) | payer MEDICARE, OTHER, SELFPAY ==
[2024-07-09 10:23] VITALS: BMI 29.8
[2024-09-24] VITALS (8 sets, daily range): BP systolic 141–184; BP diastolic 62–84; PULSE 56–61; RESP 14–16; TEMP 36.3; O2SAT 98–100
--- NOTE | 2024-09-24 16:22 | P.PCN_ITS ---
Date/Time/Diagnoses Pre-procedure diagnosis: 1. HNP WITH RADICULAR FEATURES, 2. MULTILEVEL CENTRAL STENOSIS, Post-procedure diagnosis: same Procedure Notes Procedure: 1. FLUOROSCOPICALLY GUIDED CONTRAST CONTROLLED INTERLAMINAR EPIDURAL STEROID INJECTION - L5/S1 Indications: Adri is referred by Dr. Prince for treatment of Bilateral Foraminal Stenosis L>R LE symptoms. Physician: Yves Villatoro Total Fluoroscopy time (seconds): 6 Total sedation minutes: 10 Complications: none Procedure in detail & Post-procedure care: FINDINGS Multilevel Central Spinal Stenosis with Nerve Root Compression DESCRIPTION OF PROCEDURE Fluoroscopically guided, contrast-controlled L5/S1 translaminar epidural steroid injection. Following review of allergy and review of potential side effects and complications, including, but not necessarily limited to, infection, allergic reaction, local tissue breakdown, temporary as well as permanent nerve injury, paralysis, stroke and possible , the patient indicated that the patient understood and agreed to proceed. An informed consent document was signed by the patient, witnessed by a nurse, and placed in the patient's chart. Additionally, other treatment options including modalities, medications, and physical therapy were reviewed with the patient. After review of previous anaesthesic history and IV conscious sedation the patient was deemed safe to proceed with today?s procedure with IV conscious sedation as ASA class II designation. Safety time-out was performed to confirm patient ID, procedure to be performed and site of procedure. IV sedation was accomplished with a combination of 2mg of Versed administered by the RN after DO order, titrated to patient comfort during the course of the procedure while the patient remained responsive to all verbal commands. In the prone position, following sterile prep and drape of the lumbar region, the L5/S1 translaminar space was identified fluoroscopically. The skin was anesthetized via a 25-gauge, 1.5-inch needle with 1% lidocaine solution. At this point, a 22-gauge short bevel spinal needle was atraumatically introduced and advanced under fluoroscopic guidance into the region of the L5/S1 translaminar space. Depth was confirmed on lateral view. Radiological data, including multiple fluoroscopic views of the lumbar spine, reveal a spinal needle at the L5/S1 translaminar space. Lateral views then show placement of the needle in the epidural space. Subsequent views show contrast material flowing superiorly and inferiorly in the epidural space. No vascular or intrathecal uptake is observed. At this point, using loss of resistance technique with saline and air, the epidural space was entered. This was confirmed following negative aspiration with injection of approximately 1.5cc of Isovue 200, showing excellent epidural flow without vascular or intrathecal uptake. At this point, 1cc of 0.25% marcaine solution combined with 3cc or 10mg of dexamethasone and 12mg of betamethasone was injected without incident. The patent tolerated the procedure without signs of symptoms of complications prior to transfer to the recovery area for further monitoring. The patient was then transferred to the recovery area where they were observed for an appropriate period of time after the injection. The patient reported a VAS score of 7 prior to the procedure and a post-procedure VAS of 1. POST OP INSTRUCTIONS The patient was provided a Pain Log to continue to record their response to the target-specific procedure prior to follow-up visit with their referring physic erinn. Additionally, specific post-injection care instructions and a contact number to our office were provided if concerns arise regarding possible complications associated with the procedure are suspected.
[2024-09-24] MEDS: MIDAZOLAM 2 MG/2 ML VIAL IV (16:25)
[2024-09-24] MEDS: BUPIVACAINE 0.25% (PF) VIAL 2 ML INJ (16:29)
[2024-09-24] MEDS: DEXAMETHASONE 10 MG/ML VIAL INJ (16:29)
[2024-09-24] MEDS: BETAMETHASONE 30 MG/5 ML MDV 12 MG INJ (16:29)
== END 2024-09-24 17:05 | disposition home or self-care (01) ==
LOC: RAD 15:00
PROVIDERS: Family Provider Family Medicine; PCP Family Medicine; Referring Provider Physical Medicine & Rehabilitation; Visit Provider Physical Medicine & Rehabilitation
DX: M51.17 Intervertebral disc disorders with radiculopathy, lumbosacral region (principal); M48.07 Spinal stenosis, lumbosacral region
CPT/HCPCS: 62323; 99152; J0702; J1100; J2250

== ENCOUNTER 2024-09-28 13:59 | Emergency (ER) | payer MEDICARE, OTHER, SELFPAY ==
[2024-07-09 10:23] VITALS: BMI 29.8
[2024-09-28 13:59] VITALS: BP 226/102; PULSE 61; RESP 18; TEMP 36.4; O2SAT 100; BMI 33.3
--- NOTE | 2024-09-28 14:22 | DI.RAD.S_ITS ---
PROCEDURE: XR SHOULDER RT MIN 2V INDICATIONS: Fall, R UE pain with decreased ROM TECHNIQUE: 3 views of the shoulder were acquired. COMPARISON: [facility], CR, XR SHOULDER RT MIN 2V, 05/10/2023, 13:31. FINDINGS: Bones: Proximal humerus fracture at the surgical neck. No significant displacement. Advanced degenerative changes at the glenohumeral joint. [id number] degenerative changes at the acromioclavicular joint. No dislocations. No suspicious bony lesions. Visualized ribs appear intact. Soft tissues: No suspicious soft tissue calcifications. IMPRESSION: Proximal humerus fracture at the surgical neck. Advanced right shoulder DJD. Dictated by: Nicolás Short M.D. on 09/28/2024 at 15:02 Approved by: Nicolás Short M.D. on 09/28/2024 at 15:03
--- NOTE | 2024-09-28 14:22 | DI.RAD.S_ITS ---
PROCEDURE: XR HUMERUS RT 2V INDICATIONS: Fall, R UE pain with decreased ROM TECHNIQUE: 4 views of the humerus were acquired. COMPARISON: [facility], CR, XR SHOULDER RT 2+ VIEWS, 09/28/2024, 14:38. FINDINGS: Bones: Proximal humerus fracture. No additional fracture. No dislocations. No suspicious bony lesions. Soft tissues: No suspicious soft tissue calcifications. IMPRESSION: No elbow fracture seen. Proximal humerus fracture. Dictated by: Nicolás Short M.D. on 09/28/2024 at 15:00 Approved by: Nicolás Short M.D. on 09/28/2024 at 15:01
[2024-09-28] MEDS: HYDROMORPHONE 1 MG INJ IV ×2 (14:39→16:56)
--- NOTE | 2024-09-28 18:15 | ED_ITS ---
<Statement entered by Dannie Gabriel MD - 11/07/24 09:47> pt signed out to [facility] at 1800 HPI - Fall <Dannie Gabriel MD - Last Filed: 09/28/24 18:17> General Chief Complaint: Fall Stated Complaint: Fall, R Arm Injury Time Seen by Provider: 09/28/24 14:15 Source: patient and EMS Mode of arrival: EMS History of Present Illness HPI Narrative: Pleasant 68-year-old woman comes to the ER after having a mechanical fall in her garden where she fell backwards onto her outstretched arm and immediately began having right shoulder pain. She has a known history of arthritis in the shoulder. She denies any numbness tingling or weakness of her right upper extremity. She denies any loss of consciousness, hitting her head, neck pain or back pain or headache. She has no other concerns or complaints at this time. Related Data Home Medications ?Medication ?Instructions ?Recorded ?Confirmed apixaban 5 mg tablet (Eliquis) 5 mg PO BID 05/25/21 calcium 333 mg-vit D3 133 tab PO 10/11/21 09/13/24 unit-magnesium 133 mg-zinc 5 mg tablet (Yuriy Mag Zinc Plus D3) atorvastatin 40 mg tablet 40 mg PO DAILY 01/18/2208/19 acyclovir 400 mg tablet 400 mg PO TID PRN 12/05/22 0 09/13/24 tramadol 50 mg tablet 50 mg PO DAILY PRN pain 06/1909/13/24 Previous Rx's ?Medication ?Instructions ?Recorded hydrochlorothiazide 25 mg tablet See Rx Instructions . Route 10/17/22 .COMPLEX #90 tabs atenolol 50 mg tablet 50 mg PO BID #180 tabs 12/05 valsartan 80 mg tablet 80 mg PO BID for blood press ure. 08/05/24 take every day even if normal #180 tabs celecoxib 200 mg capsule (Celebrex) 200 mg PO DAILY #3 0 caps 09/13/24 Allergies Allergy/AdvReac Type Severity Reaction Status Date / Time aspirin Allergy Difficulty Verified 09/28/24 13:59 Swallowing erythromycin base AdvReac Mild Vomiting Verified 09/28/24 13:59 metoprolol AdvReac Does not Verified 09/28/24 13:59 work and increases blood pressure naproxen AdvReac Hives Verified 09/28/24 13:59 Patient History <Dannie Gabriel MD - Last Filed: 09/28/24 18:17> Medical History Actinic keratosis (~2004) Arthritis Basal cell carcinoma Chicken pox (~1957) Distal radius fracture, left Endometriosis (~1980) Facet arthropathy, lumbar Fibroids (~1989) Gingivitis Grade II diastolic dysfunction Heavy menstrual period (~1969) Hemorrhoid (~1986) Herniated nucleus pulposus, L5-S1 High cholesterol History of Moh's micrographic surgery for skin cancer (~1975) Hyperlipidemia Impaired vision Painful menstrual periods (~1969) 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 PVCs (premature ventricular contractions) Rotator cuff impingement syndrome Sensation of plugged ear on right side Sinus bradycardia Squamous cell skin cancer (~1975) Trigger thumb Surgical History Anesthesia H/O left wrist surgery (~2017) H/O vaginal hysterectomy (~1989) H/O: History of hip replacement (~2016) History of surgery (~1975) S/P bunionectomy (~1994) Status post Mohs surgery (~1996) Family History Father Alzheimer's disease Mother Congestive heart failure Brother Cancer Brother Alcoholic Sister Cancer Grandmother History of heart disease Family/Other Hypertension Family/Other Aortic stenosis History of heart disease Social History household members: significant other Smoking Status: Never smoker alcohol intake: current Smoking Status: Never smoker alcohol intake frequency: a few times a week Alcohol type: wine Exam <Dannie Gabriel MD - Last Filed: 09/28/24 18:17> Initial Vital Signs Initial Vital Signs: Vital Signs Temperature 97.6 F 09/28/24 13:59 Pulse Rate 61 09/28/24 13:59 Respiratory Rate 18 09/28/24 13:59 Blood Pressure 226/102 H 09/28/24 13:59 Pulse Oximetry 100 09/28/24 13:59 Oxygen Delivery Method Room Air 09/28/24 13:59 Const General: cooperative, No comfortable, in distress and No diaphoretic Resp Effort & Inspection: normal respiratory effort Auscultation: clear to auscultation bilaterally Cardio Rate: regular rate Rhythm: regular rhythm Heart Sounds: S1 normal and S2 normal GI Palpation: soft and No tender Extrem Other: tenderness of R. shoulder. R. UE neurvascularly intact <Renan Chen DO - Last Filed: 09/28/24 22:29> Initial Vital Signs Initial Vital Signs: Vital Signs Temperature 97.6 F 09/28/24 13:59 Pulse Rate 61 09/28/24 13:59 Respiratory Rate 18 09/28/24 13:59 Blood Pressure 226/102 H 09/28/24 13:59 Pulse Oximetry 100 09/28/24 13:59 Oxygen Delivery Method Room Air 09/28/24 13:59 Course <Dannie Gabriel MD - Last Filed: 09/28/24 18:17> Course Course Narrative: LIZETH: I handed off care to my colleague at 7:00 p.m.. Initially the patient and I had decided that she would be admitted for pain control, however she then capitulated and decided she might be okay with going home with oral pain medication. I discussed the case with the orthopedic surgeon on-call Dr. Jad hampton and he stated that he would likely not be the 1 to do her surgery but he would help set up follow-up for her with the appropriate local surgeons. Orders Ordered: ED Orders 09/28/24 14:22 XR humerus RT 2V Stat XR shoulder RT 2+ views Stat Hydromorphone HCl (Hydromorphone 1 Mg Inj) 0.5 mg IV Q3H PRN PRN Reason: Pain, Moderate (4-6) Last Admin: 09/28/24 19:55 Dose: 0.5 mg Documented By: JR Discontinued Medications Hydromorphone HCl (Hydromorphone 1 Mg Inj) 1 mg IV NOW ONE Stop: 09/28/24 14:27 Last Admin: 09/28/24 14:39 Dose: 1 mg Documented By: SB Hydromorphone HCl (Hydromorphone 1 Mg Inj) 1 mg IV NOW ONE Stop: 09/28/24 16:47 Last Admin: 09/28/24 16:56 Dose: 1 mg Documented By: FL Hydromorphone HCl (Hydromorphone Hcl 0.5 Mg/0.5 Ml Syringe) 1 mg IV NOW ONE Stop: 09/28/24 22:13 Last Admin: 09/28/24 22:16 Dose: 1 mg Documented By: GUILLE Oxycodone/Acetaminophen (Oxycodone/Apap 5/325 Prepack) 1 bottle MISC DIRECTED ONE Stop: 09/28/24 19:46 Last Admin: 09/28/24 19:55 Dose: 1 bottle Documented By: Oxycodone/Acetaminophen (Oxycodone/Acetaminophen 5/325 Tablet) 1 tab PO NOW ONE Stop: 09/28/24 19:50 Last Admin: 09/28/24 19:55 Dose: 1 tab Documented By: Vital Signs Vital signs: Vital Signs - 8 hr 09/28/24 13:59 Temperature 97.6 F Pulse Rate 61 Respiratory Rate 18 Blood Pressure 226/102 H Pulse Oximetry 100 Oxygen Delivery Method Room Air <Renan Chen DO - Last Filed: 09/28/24 22:29> Orders Ordered: ED Orders 09/28/24 14:22 XR humerus RT 2V Stat XR shoulder RT 2+ views Stat Hydromorphone HCl (Hydromorphone 1 Mg Inj) 0.5 mg IV Q3H PRN PRN Reason: Pain, Moderate (4-6) Last Admin: 09/28/24 19:55 Dose: 0.5 mg Documented By: Discontinued Medications Hydromorphone HCl (Hydromorphone 1 Mg Inj) 1 mg IV NOW ONE Stop: 09/28/24 14:27 Last Admin: 09/28/24 14:39 Dose: 1 mg Documented By: JEANETTE Hydromorphone HCl (Hydromorphone 1 Mg Inj) 1 mg IV NOW ONE Stop: 09/28/24 16:47 Last Admin: 09/28/24 16:56 Dose: 1 mg Documented By: IVETTE Hydromorphone HCl (Hydromorphone Hcl 0.5 Mg/0.5 Ml Syringe) 1 mg IV NOW ONE Stop: 09/28/24 22:13 Last Admin: 09/28/24 22:16 Dose: 1 mg Documented By: GUILLE Oxycodone/Acetaminophen (Oxycodone/Apap 5/325 Prepack) 1 bottle MISC DIRECTED ONE Stop: 09/28/24 19:46 Last Admin: 09/28/24 19:55 Dose: 1 bottle Documented By: Oxycodone/Acetaminophen (Oxycodone/Acetaminophen 5/325 Tablet) 1 tab PO NOW ONE Stop: 09/28/24 19:50 Last Admin: 09/28/24 19:55 Dose: 1 tab Documented By: Vital Signs Vital signs: Vital Signs - 8 hr 09/28/24 13:59 Temperature 97.6 F Pulse Rate 61 Respiratory Rate 18 Blood Pressure 226/102 H Pulse Oximetry 100 Oxygen Delivery Method Room Air MDM - Fall <Renan Chen, - Last Filed: 09/28/24 22:29> MDM Narrative Medical decision making narrative: 1800:, patient was signed out to me by Dr. Gabriel, patient with a proximal humerus fracture already splinted and placed in a sling. Orthopedic surgery was consulted, initially patient was wanting to go home however there is concern that patient is in too much pain therefore is pending re-evaluation for possible admission versus discharge. 2000: Patient was re-evaluated, stating that they would like to be discharged home, states that they do have a hotel here, patient will be discharged home with pain medication instructed follow up with Orthopedic surgery, patient was given strict return precautions he verbalized understanding of this and agrees to being discharged home with outpatient follow up Discharge Plan Departure Patient Disposition: Home Clinical Impression: Ground-level fall, Fracture of proximal end of humerus
[2024-09-28] MEDS: HYDROMORPHONE 1 MG INJ 0.5 MG IV (19:55)
[2024-09-28] MEDS: OXYCODONE/ACETAMINOPHEN 5/325 TABLET 1 TAB PO (19:55)
[2024-09-28] MEDS: OXYCODONE/APAP 5/325 PREPACK 1 BOTTLE MISC (19:55)
[2024-09-28 22:55] VITALS: BP 138/63; PULSE 63; RESP 16; O2SAT 97
== END 2024-09-28 22:58 | disposition home or self-care (01) ==
LOC: ED 14:25 → AC 18:07
PROVIDERS: Emergency Provider Student in an Organized Health Care Education/Training Program; Family Provider Family Medicine; PCP Family Medicine; Referring Provider Emergency Medicine
DX: S42.201A Unspecified fracture of upper end of right humerus, initial encounter for closed fracture (principal); W18.30XA Fall on same level, unspecified, initial encounter
CPT/HCPCS: 29105; 73030; 73060; 96374; 96376; 99283; 99284; J1171

== ENCOUNTER → 2024-12-03 12:09 | Outpatient (CLI) | payer MEDICARE, OTHER, SELFPAY ==
[2024-11-22 10:44] VITALS: BMI 29.8
--- NOTE | 2024-12-03 12:11 | DI.RAD.S_ITS ---
PROCEDURE: XR DEXA AXIAL SKELETON INDICATIONS: fracture R arm COMPARISON: None. FINDINGS: Lumbar Spine: Bone mineral density 1.231 g/cm2, T score 1.7. Left Forearm: Bone mineral density 0.707 g/cm2, T score 0.2. IMPRESSION: Normal bone mineral density. Follow-up guidelines as follows: Osteoporosis: Consider a repeat DEXA and Vertebral Fracture Assessment (VFA) exam in 2 years or sooner if medically necessary, to reassess this patient's status. Osteopenia: Consider a repeat DEXA in 2-3 years to reassess this patient's status, or if there is a new clinical indication. Normal: Consider a repeat DEXA in 5 years or sooner, or if there is a new clinical indication. All treatment decisions require clinical judgment and consideration of individual patient factors, including patient preferences, comorbidities, previous drug use, risk factors not captured in the FRAX model (e.g., frailty, falls, vitamin D deficiency, increased bone turnover, interval significant decline in bone density ) and possible under- or over-estimation of fracture risk by FRAX. In addition, the NOF Guide recommends that FDA-approved medical therapies be considered in postmenopausal women and men age >= 50 years with a: * Hip or vertebral (clinical or morphometric) fracture * T-score of <=-2.5 at the spine or hip * Ten-year fracture probability by FRAX of >= 3% for hip fracture or >=20% for major osteoporotic fracture. Dictated by: Rod Yang M.D. on 12/03/2024 at 13:48 Approved by: Rod Yang M.D. on 12/03/2024 at 13:50
== END ==
PROVIDERS: Family Provider Family Medicine; PCP Family Medicine; Referring Provider Family Medicine; Visit Provider Family Medicine
DX: Z78.0 Asymptomatic menopausal state (principal)
CPT/HCPCS: 77080

== ENCOUNTER 2025-03-18 14:11 | Outpatient (CLI) | payer MEDICARE, OTHER, SELFPAY ==
[2025-02-17 13:14] VITALS: BMI 29.8
[2025-03-18] VITALS (7 sets, daily range): BP systolic 140–176; BP diastolic 63–78; PULSE 52–98; RESP 16–20; TEMP 36.8; O2SAT 97–100
[2025-03-18] MEDS: MIDAZOLAM 2 MG/2 ML VIAL IV (15:39)
[2025-03-18] MEDS: BETAMETHASONE 30 MG/5 ML MDV 12 MG INJ (15:45)
--- NOTE | 2025-03-18 15:59 | PM.PROC.IR.1 ---
Date/Time/Diagnoses Date of procedure: 03/18/25 Time of procedure: 15:59 Pre-procedure diagnosis: 1. HNP WITH RADICULAR FEATURES, 2. MULTILEVEL CENTRAL STENOSIS, Post-procedure diagnosis: same Procedure Notes Procedure: 1. FLUOROSCOPICALLY GUIDED CONTRAST CONTROLLED INTERLAMINAR EPIDURAL STEROID INJECTION - L5/S1 Indications: Adri is referred by Dr. Prince for treatment of Bilateral Foraminal Stenosis L>R LE symptoms. Physician: Yves Villatoro Total Fluoroscopy time (seconds): 5 Total sedation minutes: 10 Complications: none Procedure in detail & Post-procedure care: FINDINGS Multilevel Central Spinal Stenosis with Nerve Root Compression DESCRIPTION OF PROCEDURE Fluoroscopically guided, contrast-controlled L5/S1 translaminar epidural steroid injection. Following review of allergy and review of potential side effects and complications, including, but not necessarily limited to, infection, allergic reaction, local tissue breakdown, temporary as well as permanent nerve injury, paralysis, stroke and possible , the patient indicated that the patient understood and agreed to proceed. An informed consent document was signed by the patient, witnessed by a nurse, and placed in the patient's chart. Additionally, other treatment options including modalities, medications, and physical therapy were reviewed with the patient. After review of previous anaesthesic history and IV conscious sedation the patient was deemed safe to proceed with today?s procedure with IV conscious sedation as ASA class II designation. Safety time-out was performed to confirm patient ID, procedure to be performed and site of procedure. IV sedation was accomplished with a combination of 2mg of Versed administered by the RN after DO order, titrated to patient comfort during the course of the procedure while the patient remained responsive to all verbal commands. In the prone position, following sterile prep and drape of the lumbar region, the L5/S1 translaminar space was identified fluoroscopically. The skin was anesthetized via a 25-gauge, 1.5-inch needle with 1% lidocaine solution. At this point, a 22-gauge short bevel spinal needle was atraumatically introduced and advanced under fluoroscopic guidance into the region of the L5/S1 translaminar space. Depth was confirmed on lateral view. Radiological data, including multiple fluoroscopic views of the lumbar spine, reveal a spinal needle at the L5/S1 translaminar space. Lateral views then show placement of the needle in the epidural space. Subsequent views show contrast material flowing superiorly and inferiorly in the epidural space. No vascular or intrathecal uptake is observed. At this point, using loss of resistance technique with saline and air, the epidural space was entered. This was confirmed following negative aspiration with injection of approximately 1.5cc of Isovue 200, showing excellent epidural flow without vascular or intrathecal uptake. At this point, 1cc of 0.25% marcaine solution combined with 3cc or 10mg of dexamethasone and 12mg of betamethasone was injected without incident. The patent tolerated the procedure without signs of symptoms of complications prior to transfer to the recovery area for further monitoring. The patient was then transferred to the recovery area where they were observed for an appropriate period of time after the injection. The patient reported a VAS score of 6 prior to the procedure and a post-procedure VAS of 0. POST OP INSTRUCTIONS The patient was provided a Pain Log to continue to record their response to the target-specific procedure prior to follow-up visit with their referring physician. Additionally, specific post-injection care instructions and a contact number to our office were provided if concerns arise regarding possible complications associated with the procedure are suspected.
== END 2025-03-18 16:35 | disposition home or self-care (01) ==
LOC: RAD 14:12
PROVIDERS: PCP Family Medicine; Referring Provider Physical Medicine & Rehabilitation; Visit Provider Physical Medicine & Rehabilitation
DX: M51.17 Intervertebral disc disorders with radiculopathy, lumbosacral region (principal); M48.07 Spinal stenosis, lumbosacral region
CPT/HCPCS: 62323; 99152; J0702; J1100; J2250